=== PATIENT | male | born 1965 | race Caucasian/White ===

== ENCOUNTER 2020-10-26 14:41 | Outpatient (CLI) | payer BC, SELFPAY ==
--- NOTE | 2020-10-26 15:00 | USCV_ITS ---
Trevor Bell Age: 55 Gender: M : 1965 Exam Date: 10/26/2020 15:08 Ordering Phys: Jessica Geller SHREDDED FILLER MACHINE WRAPPER LAYER SHREDDED FILLER MACHINE WRAPPER LAYER Technologist: Eliz Trevino Exam Location: [facility] [place]_ Indication: LT CALF PAIN PROCEDURES: Venous duplex imaging was performed in only the left lower extremity. The following venous structures were evaluated: common femoral vein, profunda vein, proximal portion of the greater saphenous vein, superficial femoral vein, and the popliteal vein. In addition, the posterior tibial and peroneal trunk were evaluated. FINDINGS: Normal 2-D Doppler and augmentation and compressibility throughout the lower extremity venous structures. Additional imaging through the proximal calf veins also reveals no thrombus. Limited evaluation of the greater saphenous vein is patent with no thrombus. Attempted to give verbal prelim but got no answer. CONCLUSIONS No DVT left lower extremity. Dr. Ariana Lam DO (Electronically Signed) Final Date: 26 October 2020 15:50 S
== END 2020-10-26 14:42 | disposition home or self-care (01) ==
PROVIDERS: PCP Nurse Practitioner Family; Visit Provider Nurse Practitioner Family
DX: M79.662 Pain in left lower leg (principal)
CPT/HCPCS: 93971

== ENCOUNTER 2020-10-28 08:51 | Outpatient (CLI) | payer BC, SELFPAY ==
--- NOTE | 2020-10-28 08:59 | ECG_ITS ---
[facility] Test Date: 2020-10-28 Pat Name: Trevor Bell Department: Room: Gender: Male Change Person: Parvin Hector : 1965 Requested By: Jessica Geller Order Number: [id number] Ari MD: Meri Velázquez M.D. Interpretive Statements NAME OF STUDY: TREADMILL STRESS TEST INDICATION: Syncope Baseline blood pressure of 130/68 mm Hg, heart rate 85 beats per minute and oxygen saturation 98%. EKG showed normal sinus rhythm, rightward axis. Right bundle branch block. The patient exercised for 7 minutes 11 seconds on a standard Kit protocol. Patient attained a maximum heart rate of 144 beats per minute(86% of the maximum predicted heart rate) with a blood pressure at the peak exercise of 174/82 mm Hg and oxygen saturation 95%. The EKG at the peak exercise revealed sinus tachycardia with no significant ST-T wave changes. Patient did not have any chest pain or any significant arrhythmis with the exercise. Study was terminated due to protocol completion. During the recovery phase, there were no new changes. Blood pressure at the end of the recovery phase was 143/83 mm Hg with a heart rate of 94 beats per minute oxygen saturation 96%. CONCLUSION: 1. Normal EKG response to treadmill exercise. 2. No exercise-induced chest pain or cardiac arrhythmia. 3. Good exercise tolerance, attained a maximum of 10.2 METs. Maximum VO2 of 35.7 mL/kg/min. 4. Baseline normal blood pressure with normal response to exercise. Electronically Signed On 11-03-2020 12:28:37 CDT by Meri Velázquez M.D. [id number]
[2020-10-28 09:08] VITALS: BMI 30.3
[2020-10-28 09:18] VITALS: BP 163/83; PULSE 99
== END 2020-10-28 08:52 | disposition home or self-care (01) ==
LOC: CDL 08:53
PROVIDERS: PCP Nurse Practitioner Family; Visit Provider Nurse Practitioner Family
DX: R55 Syncope and collapse (principal)
CPT/HCPCS: 93017

== ENCOUNTER 2020-12-08 16:55 | Emergency (ER) | payer BC, SELFPAY ==
[2020-12-08 17:12] VITALS: BP 129/86; PULSE 92; RESP 16; TEMP 36.3; O2SAT 98; BMI 30.7
[2020-12-08 17:16] VITALS: BP 129/86; PULSE 91; RESP 16; O2SAT 97
--- NOTE | 2020-12-08 17:16 | ED_ITS ---
HPI - Extremity Problem General: Chief complaint: Extremity Problem,Nontraumatic Stated complaint: L lower leg injury. possible swelling Time Seen by Provider: 12/08/20 17:15 History of Present Illness: HPI Narrative: Patient with history of a knot in the left calf started about a month ago now has had some redness and swelling. Did have a ultrasound done approximately 3 to 4 weeks ago was negative for DVT. 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 Does have some itching over that area of what he calls a knot in his left calf. MD Complaint: extremity pain and extremity swelling Onset (ago): week(s) Pain Consistency: intermittent Location: left and lower extremity Quality: aching Radiation: none Relieving factors: nothing Associated symptoms: Reports no associated symptoms; Deny chest pain, fever(s) or rash Context: other (Is a diesel truck crane operator) Review of Systems Const: Denies: fever(s), chills or body aches Eyes: Denies: change in vision or blurry vision ENMT: Denies: throat pain or nasal congestion Card: Denies: chest pain or dyspnea on exertion Resp: Denies: dyspnea, productive cough or non-productive cough GI: Denies: abdominal pain, nausea or vomiting : Denies: difficulty urinating Musc: Denies: extremity pain Skin/Breast: Reports: pruritus, erythema and skin swelling (Left lower extremity); Denies: rash Neuro: Denies: headache(s) Psych: Denies: anxiety or depression Jose Angel/Lymph: Denies: easy bruising Physical Exam Const: COMMON NORMALS: no acute distress, average body habitus and patient oriented x3 HENMT: COMMON NORMALS: normocephalic HEAD & SCALP: normal to inspection and normocephalic FACE & SINUS: normal facial exam Eye: COMMON NORMALS: conjunctivae normal GENERAL EYE: appearance normal, both eyes and all related structures CONJUNCTIVA: Yes conjunctivae normal Neck/C-Spine: COMMON NORMALS: no JVD Chest: COMMONS NORMALS: normal inspection of the chest Resp: COMMON NORMALS: normal respiratory effort Cardio: COMMON NORMALS: no JVD and regular rate RATE: regular rate GI: COMMON NORMALS: Normal to inspection, nondistended, normoactive bowel sounds present Extremity: COMMON NORMALS: full ROM LEFT LOWER EXTREMITY: Yes lower leg (Appears to have superficial redness, varicose vein, left calf) OTHER: Mild swelling noted slight redness distal of the knot in his left calf is about mid calf. Consistent with a superficial thrombophlebitis presentation. Neuro: COMMON NORMALS: patient oriented x3 Course Vital Signs: Vital signs: Vital Signs Temperature 97.3 F L 12/08/20 17:12 Pulse Rate 91 12/08/20 17:16 Respiratory Rate 16 12/08/20 17:16 Blood Pressure 129/86 12/08/20 17:16 Pulse Oximetry 97 12/08/20 17:16 MDM - Extremity (Nontraumatic) MDM Narrative: Medical decision making narrative: Patient presentation consistent with superficial thrombophlebitis. Patient been having this problem for a month. 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 Patient has had an ultrasound ruled out DVT. Left lower extremity slightly red superficially does have a varicose vein type area of left posterior calf. Patient is followed primary care provider. Discharge Plan Discharge Patient Disposition: Home Clinical Impression: Superficial thrombophlebitis Qualifiers: Superficial thrombophlebitis-Involved body area: lower extremity Laterality: left Qualified Code(s): I80.02 - Phlebitis and thrombophlebitis of superficial vessels of left lower extremity Condition: Stable Prescriptions: New prednisone 20 mg tablet 20 mg PO DAILY Qty: 7 RF: 0 cephalexin 500 mg capsule 500 mg PO Q8H 7 Days Qty: 21 RF: 0 Discharge Orders: Discharge ED (Routine); Ordered 12/08/20 Ordered By: Ronn Kuo Referrals: Jessica Geller FNP [Primary Care Provider] - Discharge Diet: Usual diet Discharge Activity: Increase activity as tolerated Patient Instructions: Superficial Thrombophlebitis (ED) Activity Restrictions/Additional Instructions: Follow-up with medical provider as directed. Take medications as prescribed. Return to the ER or your medical provider if condition worsens. Please read and understand discharge instructions. If any questions ask please. Try to elevate legs much as possible. Apply moist heat every 1-2 hours as directed. 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 Try to keep legs from being bent into need for extended periods of time. Continue take baby aspirin. Coding Level of Care Code ED Electronic Commerce Specialist for Sarai Fwd Exam Comprehensive
== END 2020-12-08 17:30 | disposition home or self-care (01) ==
PROVIDERS: Emergency Provider Nurse Practitioner Family; PCP Nurse Practitioner Family
DX: I80.02 Phlebitis and thrombophlebitis of superficial vessels of left lower extremity (principal)
CPT/HCPCS: 99282

== ENCOUNTER 2022-04-02 14:54 | Emergency (ER) | payer SELFPAY ==
[2022-04-02 15:03] VITALS: BP 117/83; PULSE 78; RESP 14; TEMP 36.6; O2SAT 98; BMI 29.8
--- NOTE | 2022-04-02 15:08 | W.ED.EXTPRO ---
HPI - Extremity Problem General: Chief complaint: Extremity Injury, Lower Stated complaint: right knee injury Time Seen by Provider: 04/02/22 15:08 History of Present Illness: 56-year-old male patient comes in today for complaints of pain to the right knee. Patient reports he was vacuuming this morning when he felt a pop in his knee and since then he has had difficulty standing and bearing weight on the knee due to pain. Patient appears nontoxic. Patient appears in mild to no pain at rest. Review of Systems Musc: Reports: joint pain (right knee pain) Physical Exam Const: COMMON NORMALS: alert HENMT: COMMON NORMALS: normocephalic HEAD & SCALP: normocephalic Neck/C-Spine: COMMON NORMALS: full ROM Resp: COMMON NORMALS: normal respiratory effort and clear to auscultation bilaterally AUSCULTATION: clear to auscultation bilaterally Cardio: COMMON NORMALS: regular rate and regular rhythm RATE: regular rate RHYTHM: regular rhythm Extremity: RIGHT LOWER EXTREMITY: Yes knee joint (Crepitus to the patellofemoral groove, anterior tenderness) Right knee: Yes inspection, Yes palpation and Yes ROM Neuro: SENSORIUM/ORIENTATION: Yes alert Course Vital Signs: Vital signs: Vital Signs Temperature 97.8 F 04/02/22 15:03 Pulse Rate 78 04/02/22 15:03 Respiratory Rate 14 04/02/22 15:03 Blood Pressure 117/83 04/02/22 15:03 Pulse Oximetry 98 04/02/22 15:03 Oxygen Delivery Me thod 04/02/22 15:03 MDM - Extremity (Nontraumatic) Medical Decision Making Patient comes in for evaluation of injury to the right knee. Patient reports he was using a vacuum housekeeping cleaner and felt a pop in his right knee since then has had increased pain and difficulty standing on his leg due to his discomfort. On exam no swelling is noted to the knee. Patient does have some crepitus with range of motion of the knee and maneuvering of the patella. Differential diagnosis includes but not limited to meniscal injury, osteoarthritis, patellofemoral syndrome. X-ray of the leg noted no fractures. Reviewed exam with patient with recommendations for treatment with crutches for ambulation and increasing activity as tolerated. Patient reported understanding of care plan and need for follow-up or return to the ER. Discharge Plan Discharge Patient Disposition: Home Clinical Impression: Knee pain, right Qualifiers: Chronicity: unspecified Qualified Code(s): M25.561 - Pain in right knee Condition: Stable Prescriptions: New naproxen 500 mg tablet 500 mg PO BID Qty: 20 0RF No Action prednisone 20 mg tablet 20 mg PO DAILY Qty: 7 0RF Discharge Orders: Discharge ED (Routine); Ordered 04/02/22 Ordered By: Saleem Castellon Referrals: Jessica Geller FNP [Primary Care Provider] - Discharge Diet: Usual diet Discharge Activity: Increase activity as tolerated Patient Instructions: Knee Pain (ED) Activity Restrictions/Additional Instructions: Increase activity as tolerated. Use ice and heat to improve pain. Use naproxen routinely for pain and inflammation. You may also use [id number] acetaminophen for further pain relief. Do not use naproxen with ibuprofen containing products. Follow-up with primary care as needed. Case management will contact you regarding a follow-up appointment with orthopedist for further evaluation and treatment. Coding Level of Care Code ED Briquetting Machine Operator for Sarai Fwkaden Exam Detailed
--- NOTE | 2022-04-02 15:13 | XRR_ITS ---
PROCEDURE INFORMATION: Exam: XR Right Knee Exam date and time: 04/02/2022 3:20 PM Age: 56 years old Clinical indication: Pain; Knee; Right TECHNIQUE: Imaging protocol: Radiologic exam of the Right knee. Views: 3 views. COMPARISON: No relevant prior studies available. FINDINGS: Bones/joints: There are small marginal osteophytes across the medial joint compartment and patellofemoral joint consistent with primary osteoarthritic change. No evidence for acute fracture. Soft tissues: There are benign-appearing soft tissue calcifications. XR/XR knee RT 3V* [id number] IMPRESSION: There are small marginal osteophytes across the medial joint compartment and patellofemoral joint consistent with primary osteoarthritic change.
[2022-04-02] MEDS: naproxen 500 mg Tablet PO (15:39)
== END 2022-04-02 15:56 | disposition home or self-care (01) ==
PROVIDERS: Emergency Provider Nurse Practitioner Family; PCP Nurse Practitioner Family
DX: M25.561 Pain in right knee (principal)
CPT/HCPCS: 73562; 99283

== ENCOUNTER 2022-04-10 23:20 | Observation (INO) | payer SELFPAY ==
--- NOTE | 2022-04-10 23:21 | XRR_ITS ---
PROCEDURE INFORMATION: Exam: XR Chest Exam date and time: 04/10/2022 11:36 PM Age: 56 years old Clinical indication: Chest wall pain; Additional info: Cp TECHNIQUE: Imaging protocol: Radiologic exam of the chest. Views: 1 view. COMPARISON: No relevant prior studies available. FINDINGS: Lungs: Tiny calcific densities throughout both lungs, likely calcified granulomas.. Keating space No consolidation. Pleural spaces: Unremarkable. No pleural effusion. No pneumothorax. Heart/Mediastinum: Unremarkable. No cardiomegaly. Bones/joints: Unremarkable. There is a suspected hiatal hernia. XR/XR chest 1V portable [id number] IMPRESSION: No acute radiographic findings in the chest.
[2022-04-10 23:22] VITALS: PULSE 86
--- NOTE | 2022-04-10 23:22 | ECG_ITS ---
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 Measurements Intervals Neligh Rate: 86 P: 53 CT: 170 QRS: 4 QRSD: 133 T: 52 QT: 389 QTc: 467 Interpretive Statements SINUS RHYTHM POSSIBLE LEFT ATRIAL ENLARGEMENT [-0.1mV P-WAVE IN V1/V2] INDETERMINATE AXIS RIGHT BUNDLE BRANCH BLOCK [120+ ms QRS DURATION, UPRIGHT V1, 40+ ms S IN I/aVL/V4/V5/V6] No previous ECG available for comparison Electronically Signed On 04-11-2022 0:17:21 CDT by Liza Morgan M.D. [id number]
[2022-04-10 23:31] VITALS: BP 154/96; PULSE 97; RESP 20; TEMP 36.6; O2SAT 100; BMI 29.0
--- NOTE | 2022-04-10 23:38 | ED_ITS ---
HPI - Chest Pain General: Chief Complaint: Chest Pain Stated Complaint: chest tightness Time Seen by Provider: 04/10/22 23:22 Source: patient Mode of arrival: ambulatory Limitations: no limitations History of Present Illness: 56-year-old male states he has been having chest pain over the last 10 days. He states that he gets a pressure type pain especially with exertion with some radiation down his arm. He has some dyspnea with the pain as well. He denies any nausea or diaphoresis he denies any vo miting or diarrhea he denies any pain currently. No history of heart disease. Associated symptoms: Deny abdominal pain, dyspnea, fever(s), nausea or vomiting Review of Systems Const: Denies: fever(s), chills, body aches or change in appetite Eyes: Denies: blurry vision or eye discomfort ENMT: Denies: throat pain or dental pain Card: Reports: chest pain Resp: Denies: dyspnea GI: Denies: abdominal pain, nausea, vomiting or diarrhea : Denies: dysuria Musc: Denies: neck pain or back pain Skin/Breast: Denies: rash Neuro: Denies: headache(s) Psych: Denies: depression Jose Angel/Lymph: Denies: easy bruising All/Imm: Denies: urticaria PFSH ED PFSH: Medical History (Updated 04/11/22 @ 00:56 by Jono Rainey MD) High cholesterol Social History (Updated 04/10/22 @ 23:39 by Jono Rainey MD) Smoking and tobacco status: never smoked Substance/Drug Use: never Physical Exam Const: COMMON NORMALS: no acute distress, patient oriented x3 and healthy appearing HENMT: COMMON NORMALS: normocephalic and atraumatic HEAD & SCALP: normoceph alic and atraumatic Eye: COMMON NORMALS: Equal, round and reactive pupils present and EOMs intact bilaterally PUPIL: Yes Equal, round and reactive pupils present Neck/C-Spine: COMMON NORMALS: full ROM and supple Chest: COMMONS NORMALS: normal inspection of the chest and normal palpation of entire chest wall Resp: COMMON NORMALS: normal respiratory effort, No retractions, No use of accessory muscles and clear to auscultation bilaterally AUSCULTATION: clear to auscultation bilaterally Cardio: COMMON NORMALS: regular rate, regular rhythm and No murmurs present (Cardio) RATE: regular rate RHYTHM: regular rhythm GI: COMMON NORMALS: Normal to inspection, nondistended, normoactive bowel sounds present, Soft to palpation, non-tender and no masses PALPATION: Yes Soft to palpation Extremity: COMMON NORMALS: normal to inspection and full ROM Neuro: COMMON NORMALS: patient oriented x3, moves all extremities and no focal motor deficits Psych: COMMON NORMALS: mental status grossly normal, Normal thought process present and cooperative THOUGHT PROCESS: Normal thought process present Skin: COMMON NORMALS: no rashes or lesions noted and no wounds GENERAL SKIN EXAM: no rashes or lesions noted Course Vital Signs: Vital signs: Vital Signs Temperature 97.9 F 04/10/22 23:31 Pulse Rate 85 04/11/22 00:15 Respiratory Rate 18 04/11/22 00:15 Blood Pressure 144/95 04/11/22 00:15 Pulse Oximetry 99 04/11/22 00:15 Oxygen Delivery Me thod 04/11/22 00:15 MDM - Chest Pain Medical Decision Making Patient presents here with chest pain he is pain-free here he does have substernal pain that radiates to his arm is worse with exertion concerning for cardiac in nature original troponins mildly elevated patient given aspirin here spoke to hospitalist will admit at this time. Lab Data : 04/10/22 23:37 04/10/22 23:37 Radiology Impressions Chest X-Ray 04/10/22 23:21 IMPRESSION: No acute radiographic findings in the chest. Laboratory Results WBC 5.4 10^3/uL (4.0-10.0) 04/10/22 23:37 RBC 5.05 10^6/uL (4.1-5.3) 04/10/22 23:37 Hgb 16.1 g/dL (11.7-16.6) 04/10/22 23:37 Hct 46.8 % (42.0-52.0) 04/10/22 23:37 MCV 92.7 fl (80-94) 04/10/22 23:37 MCH 31.9 pg (28.0-34.0) 04/10/22 23:37 MCHC 34.4 g/dL (30.0-36.0) 04/10/22 23:37 RDW 13.0 % (12.1-15.1) 04/10/22 23:37 Plt Count 182 10^3/cmm (130-400) 04/10/22 23:37 MPV 10.5 fL (7.4-10.4) H 04/10/22 23:37 Neut % (Auto) 59.5 % 04/10/22 23:37 Lymph % (Auto) 27.4 % 04/10/22 23:37 Waller % (Auto) 9.6 % 04/10/22 23:37 Eos % (Auto) 2.9 % 04/10/22 23:37 Baso % (Auto) 0.4 % 04/10/22 23:37 Neut # (Auto) 3.24 10^3/uL (1.8-7.7) 04/10/22 23:37 Lymph # (Auto) 1.5 10^3/uL (0.8-4.8) 04/10/22 23:37 Waller # (Auto) 0.5 10^3/uL (0.2-0.9) 04/10/22 23:37 Eos # (Auto) 0.2 10^3/uL (0.0-0.8) 04/10/22 23:37 Baso # (Auto) 0.0 10^3/uL (0.0-0.1) 04/10/22 23:37 Nucleated RBC % (auto) 0 % 04/10/22 23:37 Nucleated RBCs # 0.0 /100WBC 04/10/22 23:37 Chloride 98 mmol/L (98-107) 04/10/22 23:37 Carbon Dioxide 24 mmol/L (22-29) 04/10/22 23:37 BUN 18 mg/dL (6-20) 04/10/22 23:37 Creatinine 1.0 mg/dL (0.7-1.2) 04/10/22 23:37 Calcium 9.4 mg/dL (8.5-10.5) 04/10/22 23:37 Total Bilirubin 0.5 mg/dL (0.15-1.2) 04/10/22 23:37 AST 5 U/L (0-40) 04/10/22 23:37 ALT < 5 U/L (0-41) 04/10/22 23:37 Troponin T Baseline 24 ng/L (0-15) H 04/10/22 23:37 Total Protein 6.8 g/dL (6.6-8.7) 04/10/22 23:37 Albumin 4.3 g/dL (3.5-5.2) 04/10/22 23:37 Globulin 2.5 g/dL (1.3-4.6) 04/10/22 23:37 EKG Data EKG 1: I personally reviewed and interpreted this EKG as follows: EKG interpretation date: 04/10/22 EKG interpretation time: 23:31 Interpretation: nsr hr [address] elevation qrs 133 qtc 432 Discharge Plan Discharge Patient Disposition: Placed in Observation Clinical Impression: Chest pain Prescriptions: No Action Farxiga 10 mg tablet 10 mg PO DAILY lovastatin 40 mg tablet 40 mg PO BEDTIME metformin 500 mg tablet extended release 24 hr 500 mg PO BID naproxen 500 mg tablet 500 mg PO BID Referrals: Jessica Geller FNP [Primary Care Provider] - Coding Level of Care Code ED Metal Bonding Press Operator for Chg Fwd Exam Comprehensive
[2022-04-10 23:40] VITALS: BP 154/96; PULSE 89; RESP 21; O2SAT 99
[2022-04-10 23:44] LABS: Basophils % 0.4 %; Eosinophils # 0.2 10^3/uL (0.0-0.8); Eosinophils % 2.9 %; Hematocrit 46.8 % (42.0-52.0); Hemoglobin 16.1 g/dL (11.7-16.6); Lymphocytes # 1.5 10^3/uL (0.8-4.8); Lymphocytes % 27.4 %; Mean Corpuscular HGB Conc 34.4 g/dL (30.0-36.0); Mean Corpuscular Hemoglobin 31.9 pg (28.0-34.0); Mean Corpuscular Volume 92.7 fl (80-94); Mean Platelet Volume 10.5 fL (7.4-10.4); Monocytes # 0.5 10^3/uL (0.2-0.9); Monocytes % 9.6 %; Neutrophils # 3.24 10^3/uL (1.8-7.7); Neutrophils % 59.5 %; Nucleated Red Blood Cells % 0 %; Platelet Count 182 10^3/cmm (130-400); Red Blood Count 5.05 10^6/uL (4.1-5.3); White Blood Count 5.4 10^3/uL (4.0-10.0)
[2022-04-11] VITALS (31 sets, daily range): BP systolic 97–144; BP diastolic 61–95; PULSE 68–103; RESP 15–25; TEMP 36.7–36.8; O2SAT 89–100
--- NOTE | 2022-04-11 | ECG_ITS ---
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 Interpretive Statements NAME OF STUDY: LEXISCAN SESTAMIBI STRESS TEST INDICATION: [Chest Pain] Procedure: At the baseline, the blood pressure was 101/61 mmHg with a heart rate of 76 bpm. The electrocardiogram showed normal sinus rhythm, right bundle branch block. No significant ST-T wave changes. The Lexiscan was infused over a period of 20 seconds. A total of 0.4 mg of Lexiscan was infused. The stress phase was continued for a total of 5 minutes. Heart rate was at the end of stress phase was 89 bpm and a blood pressure of 103/75 mmHg. The EKG at the peak infusion revealed normal sinus rhythm with no significant ST-T wave changes. Sestamibi was injected 20 seconds after the Lexiscan infusion. Blood pressure at the end of recovery phase was 115/69 mmHg with a heart rate of 85 bpm. Conclusion: 1. Normal EKG response to Lexiscan infusion 2. No Lexiscan induced chest pain or cardiac arrhythmia. 3. Normal blood pressure and heart rate response. 4. Sestamibi/sestamibi perfusion scan pending; see separate report. Electronically Signed On 04-22-2022 20:58:27 CDT by Cory Zeng M.D. [id number]
[2022-04-11 00:02] LABS: Alkaline Phosphatase 140 U/L (40-130); Blood Urea Nitrogen 18 mg/dL (6-20); Calcium 9.4 mg/dL (8.5-10.5); Carbon Dioxide 24 mmol/L (22-29); Chloride 98 mmol/L (98-107); Glomerular Filtration Rate 77.9 mL/min (90-130); Glucose 412 mg/dL (65-115); Osmolality Calculated 299 mOsm/kg (285-295); Sodium 135 mmol/L (136-145); Total Bilirubin 0.5 mg/dL (0.15-1.2); Total Protein 6.8 g/dL (6.6-8.7)
[2022-04-11] MEDS: aspirin 81 mg Chew Tablet 243 MG PO (00:15)
[2022-04-11 00:21] LABS: Troponin(5th) Baseline 24 ng/L (0-15)
[2022-04-11 00:51] LABS: Albumin Level 4.3 g/dL (3.5-5.2); Globulin 2.5 g/dL (1.3-4.6)
[2022-04-11 00:55] LABS: Anion Gap 17.1 (5-19); Potassium 4.1 mmol/L (3.5-5.1)
[2022-04-11 00:56] LABS: Alanine Aminotransferase 5 U/L (0-41); Aspartate Amino Transferase 5 U/L (0-40)
--- NOTE | 2022-04-11 01:09 | USCV_ITS ---
Trevor Bell Age: 56 Gender: M : 1965 Exam Date: 04/11/2022 01:27 Ordering Phys: Raman Ramirez MD Technologist: JORGE [place] [facility] [place]: Chest pain BP: 142 / 91 HR: 75 Rhythm: Sinus Technical Quality: Adequate MEASUREMENTS (Male / Female) Normal Values 2D ECHO LV Diastolic Diameter PLAX 3.2 cm 4.2 - 5.9 / 3.9 - 5.3 cm LV Systolic Diameter PLAX 1.9 cm IVS Diastolic Thickness 1.2 cm 0.6 - 1.0 / 0.6 - 0.9 cm IVS Systolic Thickness 1.9 cm LVPW Diastolic Thickness 1.0 cm 0.6 - 1.0 / 0.6 - 0.9 cm LVPW Systolic Thickness 1.2 cm LVOT Diameter 2.0 cm LV Ejection Fraction 2D Teich 72.6 % LV Ejection Fraction MOD 2C 57.4 % LV Ejection Fraction 2C AL 62.8 % LA Diameter 3.7 cm LA Width 3.8 cm LA Height 4.7 cm RA Width 3.3 cm RA Height 4.3 cm Aorta at Sinotubular Diameter 2.8 cm IVC Diameter 2.0 cm M-MODE Aortic Annulus Diameter 3.0 cm LA Ao Ratio MM 1.4 MV E Point Septal Separation 0.5 cm DOPPLER AV Peak Velocity 131.0 cm/s LVOT Peak Velocity 82.0 cm/s AV Area Cont Eq vti 2.0 cm squared AV Area Cont Eq pk 2.0 cm squared MV Area PHT 4.3 cm squared Mitral E to A Ratio 1.1 MV E' Velocity 42.0 cm/s Mitral E to MV E' Ratio 6.3 Mitral E to LV E' Lateral Ratio 5.3 Mitral E to LV E' Septal Ratio 8.0 TR Peak Velocity 205.3 cm/s TR Peak Gradient 16.9 mmHg TV Peak E Velocity 61.0 cm/s Right Atrial Pressure 5.0 mmHg Pulmonary Artery Systolic Pressu 21.9 mmHg PV Peak Velocity 104.0 cm/s RV Acceleration Time 0.1 s RV Ejection Time 0.4 s RV AcT/ET 0.4 FINDINGS Left Ventricle Normal left ventricular size, systolic function and wall thickness, with no regional wall motion abnormalities. Left ventricular ejection fraction is estimated at 60-65 %. Normal diastolic function. Right Ventricle Normal right ventricular size and systolic function. Right ventricular systolic pressure 22 mmHg. Right Atrium Normal right atrial size. Left Atrium Normal left atrial size. Mitral Valve Structurally normal mitral valve. No mitral valve stenosis. Trace mitral valve regurgitation. Aortic Valve Structurally normal trileaflet aortic valve. No aortic valve stenosis. No aortic valve regurgitation. Tricuspid Valve Structurally normal tricuspid valve. No tricuspid valve stenosis. Trace tricuspid valve regurgitation. Pulmonic Valve Structurally normal pulmonic valve. No pulmonary valve stenosis. No pulmonary valve regurgitation. Pericardium No pericardial effusion. Aorta Normal size aortic root and proximal ascending aorta. IVC Normal IVC dimension with >50% respiratory change of the inferior vena cava. CONCLUSIONS 1. Normal left ventricular size, systolic function and wall thickness, with no regional wall motion abnormalities. Left ventricular ejection fraction is estimated at 60-65 %. Normal diastolic function. 2. Normal right ventricular size and systolic function. 3. Pulmonary artery pressure estimated at 22 mmHg. 4. No significant valvular abnormality. 5. No prior similar studies to compare. Meri Velázquez MD (Electronically Signed) Final Date: 11 April 2022 11:48 S
--- NOTE | 2022-04-11 01:13 | PM.HP ---
Providers/Chief Complaint Primary Care Provider: Jessica Geller Chief Complaint: chest tightness History of Present Illness Trevor Bell is a 56 year old male with past medical history of diabetes, dyslipidemia, came in with chief complaint of substernal chest tightness going on for the last 2 weeks, worse with exertion, radiating to left arm, accompanied with mild shortness of breath, denied any palpitation diaphoresis nausea vomiting, cough fever. Upon arrival in the ER he was worked up for above-mentioned complaint. Pertinent imaging studies: X-ray chest; no acute findings EKG: Sinus rhythm possible left atrial enlargement,RBBB Pertinent labs: WBC 5.4, H&H 16/46 , PLT: 182 , sodium 135 potassium 4.1, BUN/SCR:18/1 , RBS : 412 Troponin trend: Review of Systems General: Reports: 10 or more systems reviewed and unremarkable except in HPI and below Const: Denies: fever(s), chills, body aches, change in appetite or diaphoresis Card: Denies: palpitations, edema, swelling of feet/ankles, dyspnea on exertion, orthopnea or leg pain with exertion Resp: Denies: dyspnea, productive cough, wheezing or pain on inspiration GI: Denies: abdominal pain, nausea, vomiting, diarrhea or constipation : Denies: flank pain or difficulty urinating Musc: Denies: back pain, extremity pain or extremity swelling Neuro: Denies: headache(s), difficulty walking or confusion Medications/Allergies Home Medications Medication Instructions Recorded Confirmed Last Taken Type dapagliflozin 10 mg tablet 10 mg PO DAILY 04/10/22 04/10/22 04/05/22 08:00 History ([facility]) lovastatin 40 mg tablet 40 mg PO BEDTIME 04/10/22 04/10/22 04/06/22 21:00 History metformin 500 mg tablet,extended 500 mg PO BID 04/10/22 04/10/22 04/05/22 08:00 History release 24 hr naproxen 500 mg tablet 500 mg PO BID 04/10/22 04/10/22 04/09/22 12:00 History Allergies Allergy/AdvReac Type Severity Reaction Status Date / Time No Known Allergies Allergy Verified 04/10/22 23:35 PFSH Acute PFSH: Medical History (Updated 04/11/22 @ 01:14 by Raman Ramirez MD) High cholesterol Social History (Updated 04/10/22 @ 23:39 by Jono Rainey MD) Smoking and tobacco status: never smoked Substance/Drug Use: never Vitals/I&O/Wt Last Vital Signs Temp 97.9 F 04/10/22 23:31 Pulse 87 04/11/22 01:00 Resp 16 04/11/22 01:00 BP 142/91 04/11/22 01:00 Pulse Ox 98 04/11/22 01:00 O2 Del Method 04/11/22 01:00 Weight last 48 hrs Weight 81.647 kg Physical Exam Const: COMMON NORMALS: patient oriented x3 Resp: COMMON NORMALS: normal respiratory effort, No retractions, No use of accessory muscles and clear to auscultation bilaterally EFFORT & INSPECTION: Yes symmetric chest movement AUSCULTATION: clear to auscultation bilaterally Cardio: COMMON NORMALS: regular rate, regular rhythm, S1 normal heart sound present, S2 normal heart sound present, No gallops present (Cardio), No murmurs present (Cardio), No rub (Cardio) and Peripheral pulses 2+ throughout RATE: regular rate RHYTHM: regular rhythm HEART SOUNDS: S1 normal heart sound present and S2 normal heart sound present PERIPHERAL PULSES: Peripheral pulses 2+ throughout GI: COMMON NORMALS: Normal to inspection, nondistended, normoactive bowel sounds present, Soft to palpation, non-tender, No hepatosplenomegaly present and no masses AUSCULTATION: Yes normoactive bowel sounds PALPATION: Yes Soft to palpation and Yes No hepatosplenomegaly present RECTAL EXAM: Yes deferred Extremity: COMMON NORMALS: no clubbing, cyanosis or edema and no pedal edema Neuro: COMMON NORMALS: patient oriented x3 Data : 04/11/22 03:00 04/11/22 03:00 A&P Assessment and plan (1) Chest pain: (2) Dyslipidemia: (3) Diabetes: Plan 56 year old male with past medical history of diabetes, dyslipidemia, came in with chief complaint of substernal chest tightness going on for the last 2 weeks, worse with exertion, radiating to left arm, accompanied with mild shortness of breath, denied any palpitation diaphoresis nausea vomiting, cough fever. Assessment: Chest pain Diabetes Dyslipidemia Plan: Patient has exercise stress test in November 03: Which was normal Follow- 2D echo Lipid panel HbA1c N.p.o. for stress test Aspirin ,stain, Nitropaste Sublingual nitro as needed CODE STATUS: Full code DVT PPX: On Lovenox Attestations Medical Necessity Statement*: Patient is to be in hospital for management of chest pain. Time Spent in Patient Care: Greater than 35 minutes (>than 50% of time spent in counselling and/or direct pt care on unit). Coding Level of Care Code Acute Advertising Assistant Manager for g Fwd Exam Detailed Diagnoses Chest pain R07.9 Dyslipidemia E78.5 Diabetes E11.9
--- NOTE | 2022-04-11 01:22 | ECG_ITS ---
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 Measurements Intervals Emerson Rate: 76 P: 21 NM: 142 QRS: 19 QRSD: 133 T: 50 QT: 403 QTc: 456 Interpretive Statements SINUS RHYTHM INDETERMINATE AXIS RIGHT BUNDLE BRANCH BLOCK Compared to ECG 04/10/2022 23:31:07 No significant change Electronically Signed On 04-11-2022 12:21:38 CDT by Meri Velázquez M.D. [id number]
--- NOTE | 2022-04-11 01:48 | NMCV_ITS ---
NM kwasi perf SPECT r/s* [id number] Ray Trevor Age: 56 Gender: M : 1965 Exam Date: 04/11/2022 07:05 Ordering Phys: Raman Ramirez MD Technologist: JULIETTE Toledo Exam Location: [facility] Indications: Chest pressure STRESS TEST Please [facility] IMAGE PROTOCOL Rest/Stress 1 Lexiscan Day Radiopharmaceutical Dose (mCi) Administration Site Administered by Rest: Tc-99m 10.9 IV JULIETTE [place] Sestamibi Stress:Tc-99m 32.9 IV JULIETTE [place] Sestamibi Rest: 11-Apr-2022 60 Discovery 630 Stress: 11-Apr-2022 30 Discovery 630 0.4mg Lexiscan. Images obtained in supine and prone position. SPECT RESULTS Technical Quality: Good Raw Data Analysis: Normal Image Corrections: No attenuation or motion correction applied Summed Stress Score: 10 Summed Rest Score: 1 Summed Difference Score: 9 PERFUSION FINDINGS There is a large in size reversible perfusion defect noted in anterior, apical anterior and septal wall. This is consistent with large sized area of ischemia in LAD territory. FUNCTIONAL RESULTS (calculated via Gated SPECT) Stress Image LV EF (%): 55 Stress EDV (mL):75 TID: 0.9 Stress ESV (mL):34 FUNCTIONAL FINDINGS: There is normal left ventricular systolic function. IMPRESSIONS 1. Abnormal myocardial perfusion imaging with large sized area of ischemia noted in the LAD territory 2. LV systolic function is normal Cory Zeng MD (Electronically Signed) Final Date: 11 April 2022 09:38 S
--- NOTE | 2022-04-11 02:02 | PC.NURSE ---
patient transport delayed due to ultrasound at bedside
[2022-04-11 02:25] LABS: Troponin 5 2HR 28.96 ng/L (0-15)
[2022-04-11 02:26] LABS: Troponin 5 2HR Delta 4.96 ABS# (0-10)
[2022-04-11] MEDS: nitroglycerin 1 gm/inch oint Pkt 1 INCH TOPICAL (02:38)
[2022-04-11] MEDS: enoxaparin 40 mg/0.4 mL Syringe SUBCUT (02:38)
[2022-04-11 03:08] LABS: Basophils % 0.4 %; Eosinophils # 0.2 10^3/uL (0.0-0.8); Eosinophils % 3.2 %; Hematocrit 42.8 % (42.0-52.0); Hemoglobin 14.5 g/dL (11.7-16.6); Lymphocytes # 1.5 10^3/uL (0.8-4.8); Lymphocytes % 31.5 %; Mean Corpuscular HGB Conc 33.9 g/dL (30.0-36.0); Mean Corpuscular Hemoglobin 31.3 pg (28.0-34.0); Mean Corpuscular Volume 92.2 fl (80-94); Mean Platelet Volume 10.1 fL (7.4-10.4); Monocytes # 0.4 10^3/uL (0.2-0.9); Monocytes % 9.3 %; Neutrophils # 2.57 10^3/uL (1.8-7.7); Neutrophils % 55.6 %; Nucleated Red Blood Cells % 0 %; Platelet Count 152 10^3/cmm (130-400); Red Blood Count 4.64 10^6/uL (4.1-5.3); Red Cell Distribution Width 12.7 % (12.1-15.1); White Blood Count 4.6 10^3/uL (4.0-10.0)
[2022-04-11 03:33] LABS: Estmated Average Glucose 212
[2022-04-11 03:56] LABS: Blood Urea Nitrogen 16 mg/dL (6-20); Calcium 9.1 mg/dL (8.5-10.5); Carbon Dioxide 19 mmol/L (22-29); Chloride 101 mmol/L (98-107); Creatinine Clr Calc Pharmacy 94.1472; Glomerular Filtration Rate 87.9 mL/min (90-130); Glucose 394 mg/dL (65-115); Osmolality Calculated 300 mOsm/kg (285-295); Sodium 136 mmol/L (136-145)
[2022-04-11 03:58] LABS: Anion Gap 20.3 (5-19); Potassium 4.3 mmol/L (3.5-5.1)
--- NOTE | 2022-04-11 05:18 | ECG_ITS ---
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 Measurements Intervals [place] Rate: 90 P: 42 MD: 154 QRS: 3 QRSD: 133 T: 42 QT: 380 QTc: 465 Interpretive Statements SINUS RHYTHM INDETERMINATE AXIS RIGHT BUNDLE BRANCH BLOCK [120+ ms QRS DURATION, UPRIGHT V1, 40+ ms S IN I/aVL/V4/V5/V6] Compared to ECG 04/11/2022 02:07:34 Right bundle-branch block now present Intraventricular conduction delay no longer present Electronically Signed On 04-11-2022 12:21:03 CDT by Meri Velázquez M.D. [id number]
[2022-04-11 05:54] LABS: Troponin 5 6HR 25.88 ng/L (0-15)
[2022-04-11 05:59] LABS: Troponin 5 6HR Delta 1.88 ng/L (0-12)
[2022-04-11 06:10] LABS: Chol HDL Ratio 8.03 mg/dL (1.0-5.00); Cholesterol 257 mg/dL (0-200); HDL Cholesterol 32 mg/dL (60-100); Triglycerides 732 mg/dL (0-150)
[2022-04-11 06:16] LABS: Glucose Point of Care 272 mg/dL (70-110)
[2022-04-11 06:33] LABS: LDL Cholesterol Direct 137 mg/dL (0-100)
[2022-04-11] MEDS: regadenoson 0.4 Mg/5 ml Syringe IVP (07:41)
[2022-04-11 08:14] LABS: Lipase 53 U/L (13-60)
--- NOTE | 2022-04-11 09:49 | P.PN_ITS ---
Subjective Subjective: Positive stress test patient will need cardiac No active chest pain at the bedside I requested lipase to rule out pancreatitis High triglycerides noted Patient is noncompliant with his medications Vitals/I&O/Wt Last Vital Signs Temp 98.0 F 04/11/22 04:00 Pulse 69 04/11/22 08:00 Resp 18 04/11/22 04:00 BP 115/69 04/11/22 07:53 Pulse Ox 98 04/11/22 08:00 O2 Del Method 04/11/22 08:00 Weight last 48 hrs Weight 81.647 kg Physical Exam Narrative: Chest pain-free at this point S1, S2 Hemodynamically stable Currently on room air Abdomen soft Euvolemic Family at the bedside Nonfocal neuro exam Data : 04/11/22 03:00 04/11/22 03:00 A&P Assessment and plan (1) Diabetes: (2) Dyslipidemia: (3) Chest pain: (4) High cholesterol: Plan Positive stress test, will go for cardiac cath Dr. Zeng is consulted He is n.p.o. Home and IV stable Start normal saline Full code Hemoglobin A1c is 9 Patient does not take insulin Attestations Medical Necessity Statement*: Going for cardiac cath Time Spent in Patient Care: 40 Coding Level of Care Code Acute College Associate for Chg Fwd Diagnoses Diabetes E11.9 Dyslipidemia E78.5 Chest pain R07.9 High cholesterol E78.00
--- NOTE | 2022-04-11 09:56 | XACV_ITS ---
Exam Room: On license of [facility] Ht: 168 cm Wt: 82 kg BSA: 1.97 m2 Gender: Male : 1965 Any Known Allergies: No known allergies Exam Priority: Routine Procedure(s): Procedure Description: Diagnostic procedure Procedure Description: PCI procedure Procedure Description: Left Heart Catheterization Procedure Description: Coronary IVUS Procedure Description: Drug Eluting Coronary Stent Procedure Description: PTCA Procedure Description: Miscellaneous Procedure Description: ACT Procedure Description: Coronary Angiography Diagnostic Cath Status: Urgent Diagnostic Findings * Left Main is very short. No significant disease. Almost separate ostia. * Left circumflex artery has almost separate ostia. * It gives rise to a very large sized OM 1. * F * irst Obtuse Marginal Branch Segment: significant 80% stenosis, KARLEE: 3 flow. * INDICATION: Patient has presented with typical, worsening chest pain symptoms for the last 2 to 3 weeks. Stress test performed today shows large sized area of ischemia in LAD territory. * Proximal Left Anterior Descending to Mid Left Anterior Descending: severe 90% stenosis, KARLEE: 3 flow. * Proximal Right Coronary Artery to Mid Right Coronary Artery: minimal 30% stenosis, KARLEE: 3 flow. * 1st Diagonal: significant 80% stenosis, KARLEE: 3 flow. * Coronary angiography shows right dominance. PCI Status: Urgent PCI Indication: New Onset Angina <= 2 months Interventional Findings * Procedure detail: We engaged left circumflex artery subselectively with XB 3.0 guide catheter. 0.014 run-through guidewire was used to cross OM stenosis. This was followed by predilation with 2.5 x 12 mm noncompliant balloon. We then placed 3.5 x 15 mm resolute Shubham drug-eluting stent. At this time final angiogram was performed that showed excellent stent expansion, no residual stenosis and KARLEE-3 flow. We then switched our attention to LAD/diagonal artery stenosis. LAD was subselectively engaged with XB 3.0 guide catheter. We used the 2 wires to cross into diagonal and LAD. Diagonal artery was first dilated with 2.5 x 12 mm semicompliant balloon. This opened up the ostium very well. Given small to medium sized vessel, we decided to treat LAD with a provisional stent strategy. IVUS was used to size the vessel. We predilated LAD stenosis with 2.5 x 12 mm semicompliant balloon. This was followed by placement of 3.5 x 26 mm resolute Shubham drug-eluting stent. IVUS showed some underexpansion in the proximal segment. We performed post dilation with 3.5 x 8 mm NC balloon. At this time final angiogram was performed that showed excellent stent expansion, no residual stenosis and KARLEE-3 flow. Guidewire and guide catheter were removed. Patient left the Guard Supervisor in a stable condition.. * Proximal Left Anterior Descending to Mid Left Anterior Descendin% stenosis treated with a AB TREK 2.50X12 RX BALLOON, MDT R SHUBHAM 3.5X26 ASHWIN, and MDT NC EUPHORA RX [id number] BALLOON. 0% residual stenosis, KARLEE: 3 flow. * 1st Diagonal: 80% stenosis treated with a AB TREK 2.50X12 RX BALLOON. 0% residual stenosis, KARLEE: 3 flow. * First Obtuse Marginal Branch Segment: 80% stenosis treated with a AB TREK 2.50X12 RX BALLOON, and MDT R SHUBHAM 3.5X15 ASHWIN. 0% residual stenosis, KARLEE: 3 flow. Conclusions 1. Critical stenosis of proximal to 2. mid LAD 3. . Severe ostial diagonal artery stenosis. 4. Status post successful revascularization with ASHWIN x1 to proximal to mid LAD. 5. Balloon angioplasty of ostial diagonal artery performed. Severe large sized OM1 stenosis. Status post successful revascularization with ASHWIN x1.. 6. Proximal Left Anterior Descending to Mid Left Anterior Descending was treated with a Balloon, Drug Eluting Stent, and Balloon. 7. 1st Diagonal was treated with a Balloon. 8. First Obtuse Marginal Branch Segment was treated with a Balloon, and Drug Eluting Stent. Recommendations * We will load with Brilinta. Continue aspirin and Brilinta for at least 1 year. * Aggrastat drip for 4 hours. * High intensity statin therapy. * Outpatient cardiology follow-up in 4 weeks. Interventional RX Recommendation: PCI w/o planned CABG Diagnostic RX Recommendation: PCI w/o planned CABG Anticoagulation: Heparin Pressures Phase:Rest AO : 108 / 80 ( 95 ) @ 11:31:00 AM 97 / 73 ( 86 ) @ 11:34:00 AM 144 / 86 ( 113 ) @ 11:37:00 AM 95 / 67 ( 81 ) @ 11:47:00 AM 107 / 69 ( 84 ) @ 11:51:00 AM 105 / 71 ( 87 ) @ 11:58:00 AM 80 / 54 ( 67 ) @ 12:03:00 PM 115 / 78 ( 95 ) @ 12:11:00 PM 111 / 77 ( 94 ) @ 12:21:00 PM LV : 152 / 7 / 24 @ 11:37:00 AM 139 / 2 / 20 @ 11:37:00 AM Valves Phase:DefaultPhase AV : 0.0 @ 11:34:02 AM AV Mean Gradient: 0.0 @ 11:34:02 AM Clinical Evaluation EBL: 5mL-10mL Procedural Details Procedure Consent Obtained. Pre-Procedure Time Out. Identified patient by full name and date of as verbalized by the patient/guarantor. Does the consent match the physician's order: Yes. Accurate & Complete Informed Consent: Yes. Inpatient/Outpatient History & Physical on Chart: Yes. If H&P is completed, is and addenduem needed: No. Visualize and Verify Site with Patient/Guarantor: N/A. Relevant Radiology Images available: Yes. The risks, benefits, and alternatives of sedation and/or procedure were discussed by physician. The patient agrees to continue. Procedure started. [facility] Clinical Fraility Score: 3: Managing Well. Guard Supervisor Indications: ACS > 24 hours. Chest Pain Symptom Assessment: Atypical Angina. Correct patient, site and procedure confirmed by cath team. Current diagnosis: Chest Pain. PERRLA. Strong, equal hand rabble furnace tender bilaterally. Lungs clear x 5 lobes. IV Site on Arrival: 18 gauge in the right anticubital. IV Fluids: 0.9% NaCl at KVO. 0 mL infused prior to cathode builder. Pre Procedural Pulses: right radial was 3+. Oxygen started at 2liters/min via nasal canula. right groin was prepped with chloroprep then draped in the usual sterile fashion. right radial was prepped with chloroprep then draped in the usual sterile fashion. Baseline sample Acquired. HR: 0 BPM. Physician notified. Physician arrived. Current Diagnosis : Chest Pain. Physician scrubbed in. Immediate Pre-Procedure Time Out. Correct Patient: Yes; Correct Procedure: Yes; Correct Site: Yes; Correct Patient Position: Yes; Correct Supplies: Yes; Dried Flammable Prep: Yes; Blood Products Available: N/A;. Lidocaine 1% infiltrated to the right radial. Arterial access obtained. A 5 jamaican TIG catheter in over wire. Multiple views taken of left coronary artery. Catheter redirected to the RCA. Multiple views taken of right coronary artery. Physician review of cine films. EDP Sample taken: LV 152/7,24; HR: 79 BPM; SpO2: 97%. Pullback taken: LV 139/2,20; AO 144/86(113); Mean: 0mmHg, Peak to Peak: 0mmHg, SEP: 5sec/min; HR: 83 BPM; SpO2: 97%. Catheter removed over the exchange wire. Side port of sheath attached to Normal Saline flush at KVO to maintain patency. PCI Indication: CAD (without ischemic symptoms). 6 jamaican XB 3 guide catheter was inserted over the wire. Runthrough guidewire was advanced through the guide catheter to lesion in the OM. Inflation number : 1 A AB TREK 2.50X12 RX BALLOON was prepped and advanced across the 1st Ob Keli , then inflated to 12 VINAY for 0:18 seconds. Balloon out. Results checked. Inflation Number : 2 A MDT R SHUBHAM 3.5X15 ASHWIN -Lot Number# _[id number] EXP: 10/19/2024 was prepped and advanced across the 1st Ob Keli. The stent was deployed at 12 VINAY for 0:20 seconds. Stent balloon out over wire. Results checked. Wire out. Runthrough guidewire was advanced through the guide catheter to lesion in the prox LAD. Runthrough guidewire was advanced through the guide catheter to lesion in the diaganol. Inflation number: 1 The AB TREK 2.50X12 RX BALLOON was reinflated across the 1st Diag, to 8 VINAY for 0:15 seconds. Inflation number: 2 The AB TREK 2.50X12 RX BALLOON was reinflated across the 1st Diag, to 8 VINAY for 0:14 seconds. Balloon out. Results checked. Wire removed from the Diag. Inflation number: 1 The AB TREK 2.50X12 RX BALLOON was reinflated across the Prox LAD, to 12 VINAY for 0:17 seconds. Balloon out. IVUS catheter inserted OTW. ACT drawn. Results 349 seconds. Therapeutic limits - pre-heparin administration 90-150 seconds and monitoring heparin during a vascular procedure >250 seconds. IVUS results obtained. IVUS catheter out OTW. Inflation Number : 2 A MDT R SHUBHAM 3.5X26 ASHWIN -Lot Number# _[id number]_ EXP: 10/18/2024 was prepped and advanced across the Prox LAD. The stent was deployed at 12 VINAY for 0:32 seconds. Stent balloon out over wire. Results checked. IVUS catheter inserted OTW. IVUS results obtained. IVUS catheter out OTW. Inflation number : 3 A MDT NC EUPHORA RX [id number] BALLOON was prepped and advanced across the Prox LAD , then inflated to 14 VINAY for 0:18 seconds. Inflation number: 4 The MDT NC EUPHORA RX [id number] BALLOON was reinflated across the Prox LAD, to 12 VINAY for 0:15 seconds. Results checked. Wire out. Results checked. ACT drawn. Results 290 seconds. Therapeutic limits - pre-heparin administration 90-150 seconds and monitoring heparin during a vascular procedure >250 seconds. Guide catheter out. A TR Band was successful obtaining hemostatsis at the Right Radial artery insertion site. Post Procedure: Pulses reassessed and unchanged. PERRLA. Strong, equal hand rabble furnace tender bilaterally. No VTE prophylaxis required. Total IV fluids: 80 mL. Medication's Wasted: Lidocaine 1% = 2 mL. Medication's Wasted: Nitro = 49.8 mg. Vital chart was stopped. Post-op diagnosis: CAD. Complications: None. Estimated blood loss: 5mL-10mL. Responsiveness - Normal response to verbal stimuli; alert and oriented, PERRLA. Airway - Unaffected, no intervention required; spontaneous ventilation. Circulation: W/N/L, pulses unchanged. Nausea/Vomiting: No. Procedure completed. Patient transferred by wheelchair to CPRU. Access Site Site: Right Radial artery Sheath Size: 6 Fr Hemostasis Method: TR Band Hemostasis Success: Successful Procedure Medications Start: 10:22 AM Stop: 10:22 AM Medication: Versed Amount: 1 mg Route: I.V. Start: 10:22 AM Stop: 10:22 AM Medication: Fentanyl Amount: 50 mcg Route: I.V. Start: 10:24 AM Stop: 10:24 AM Medication: Benadryl Amount: 25 mg Route: I.V. Start: 10:28 AM Stop: 10:28 AM Medication: Versed 1 mg and Fentanyl 25 mcg Amount: 1 Route: I.V. Start: 10:28 AM Stop: 10:28 AM Medication: Nitrogylcerin Amount: 200 mcg Route: I.A. Start: 10:29 AM Stop: 10:29 AM Medication: Heparin Amount: 5000 units Route: I.V. Start: 10:46 AM Stop: :46 AM Medication: Heparin Amount: 5000 units Route: I.V. Start: 11: AM Stop: 11: AM Medication: Heparin Amount: 1000 units Route: I.V. Start: 11:12 AM Stop: 11:12 AM Medication: Aggrastat 12.5 mg/250 mL Amount: 41 ml Route: I.V. bolus Start: 11:12 AM Stop: 11:12 AM Medication: Aggrastat 12.5 mg/250 mL Amount: 14.8 ml/hr Route: I.V. drip Start: 11:21 AM Stop: 11:21 AM Medication: Fentanyl Amount: 25 mcg Route: I.V. Start: 11:24 AM Stop: 11:24 AM Medication: Brilinta Amount: 180 mg Route: P.O. I, the attending physician, have reviewed and verified all procedure medications. Yes, all medications given per verbal order History/Risk Factors Hypertension: No Dyslipidemia: Yes Peripheral Arterial Disease (PAD): No Myocardial Infarction (NE): No Obesity: No Renal Disease: No Prior Interventions PCI: No CABG: No Valve Surgery: No Report Signatures Finalized by Cory Zeng MD on 04/11/2022 12:27 PM
--- NOTE | 2022-04-11 09:58 | P.CONIM_ITS ---
Providers/Reason For Consult Consulting Physician/Specialty*: Cory Zeng MD/ Cardiology Reason for Consult*: Chest pain/ abnormal stress test Requesting Physician: Dr Lott Attending Physician: Macy Lott MD Primary Care Provider: Jessica Geller History of Present Illness History of Present Illness Trevor Bell is a 56 year old male with past medical history of diabetes, hyperlipidemia who presented to the hospital with substernal chest discomfort for last couple of weeks. According to patient it radiates to the back and the right arm. It has been worsening. EKG showed right bundle branch block but no ischemic changes. Troponins did not trend up. He underwent nuclear stress test today that showed a large area of ischemia in LAD territory. Not have prior cardiac history. Review of Systems General: Reports: 10 or more systems reviewed and unremarkable except in HPI and below Const: Denies: fever(s), chills, body aches, change in appetite or diaphoresis Card: Reports: chest pain; Denies: palpitations, edema, swelling of feet/ankles, dyspnea on exertion, or thopnea or leg pain with exertion Resp: Denies: dyspnea, productive cough, wheezing or pain on inspiration GI: Denies: abdominal pain, nausea, vomiting, diarrhea or constipation : Denies: flank pain or difficulty urinating Musc: Denies: back pain, extremity pain or extremity swelling Neuro: Denies: headache(s), difficulty walking or confusion Medications/Allergies Home Medications Medication Instructions Recorded Confirmed Last Taken Type dapagliflozin 10 mg tablet 10 mg PO DAILY 04/10/22 04/10/22 04/05/22 08:00 History (Located Within [facility]) lovastatin 40 mg tablet 40 mg PO BEDTIME 04/10/22 04/10/22 04/06/22 21:00 History metformin 500 mg tablet,extended 500 mg PO BID 04/10/22 04/10/22 04/05/22 08:00 History release 24 hr naproxen 500 mg tablet 500 mg PO BID 04/10/22 04/10/22 04/09/22 12:00 History Allergies Allergy/AdvReac Type Severity Reaction Status Date / Time No Known Allergies Allergy Verified 04/10/22 23:35 Current Medications Generic Name Dose Route Start Last Admin Trade Name Freq PRN Reason Stop Dose Admin Enoxaparin Sodium 40 mg 04/11/22 01:15 04/11/22 02:38 Enoxaparin 40 Mg/0.4 Ml Syringe SUBCUT 40 mg Q24H DREAD Administration Insulin Human Lispro 0 unit 04/11/22 08:00 04/11/22 09:56 Insulin Lispro 100 Unit/1 Ml SUBCUT Not Given TIDWM [facility] Protocol Nitroglycerin 1 inch 04/11/22 01:15 04/11/22 09:56 Nitroglycerin 1 Gm/Inch Oint Pkt TOPICAL Not Given Q6H DREAD PFSH Acute PFSH: Medical History Diabetes High cholesterol Social History Smoking and tobacco status: never smoked Substance/Drug Use: never Vitals/I&O/Wt Last Vital Signs Temp 98.0 F 04/11/22 04:00 Pulse 69 04/11/22 08:00 Resp 18 04/11/22 04:00 BP 115/69 04/11/22 07:53 Pulse Ox 98 04/11/22 08:00 O2 Del Method 04/11/22 08:00 Weight last 48 hrs Weight 180 lb Physical Exam Narrative: GENERAL: Patient is alert, awake and oriented x3. [] NECK: No jugular vein distension. [] HEENT: No cyanosis. No icterus. No pallor. [] HEART: Regular S1 and S2. No murmur, rub or gallop. [] LUNGS: Clear to auscultate bilaterally. [] CENTRAL NERVOUS SYSTEM: Grossly nonfocal. [] EXTREMITIES: Lower extremities with 1+ edema bilaterally. Pulses palpable in the lower extremities, both dorsalis pedis and posterior tibial. [] Data : 04/11/22 03:00 04/11/22 03:00 A&P Assessment and plan (1) Chest pain: (2) Dyslipidemia: (3) Diabetes: Plan Patient has presented with typical worsening chest pain symptoms. He underwent stress test this morning that shows large area of ischemia in LAD territory. Plan for coronary angiogram with possible percutaneous coronary intervention. Risks and benefits of the procedure have been discussed with the patient. He understands the risks and benefits and wants to proceed with the procedure. Prelim read on echocardiogram shows normal LV systolic function. Continue aspirin. Keep n.p.o. Thank you for involving us with care of this patient. We will continue to follow. Please call with questions. Consult Attestations Medical Necessity Statement: Care expected to cross 2 midnights. Coding Level of Care Code Acute Safety Clothing And Equipment Developer for Sarai Call Diagnoses Chest pain R07.9 Dyslipidemia E78.5 Diabetes E11.9
[2022-04-11] MEDS: aspirin 81 mg EC Tablet PO (10:08)
--- NOTE | 2022-04-11 10:22 | W.PM.OPSUD ---
Surgery/Procedure H&P Update DATE OF PROCEDURE: April 11, 2022 DATE H&P PERFORMED: 04/11/22 H&P UPDATE INFORMATION: I have reviewed H&P completed within last 30 days, I have examined patient prior to procedure and No changes to prior documentation PREOP DIAGNOSIS: Worsening angina/abnormal stress test PRIMARY INDICATION FOR PROCEDURE: Worsening angina/abnormal stress test PLANNED PROCEDURE: Left heart cath with possible percutaneous coronary intervention PATIENT REASSESSED PRIOR TO SEDATION, WITH NO CHANGE NOTED: Yes PHYSICAL EXAM: alert, oriented x 3, clear to auscultation bilaterally and regular rate & rhythm AIRWAY EVAL/ANESTHESIA PLAN: normal airway, ASA III, Local Anesthesia, Risks, benefits & alternatives of sedation and/or procedure discussed and Patient agrees to continue as planned
[2022-04-11] MEDS: sodium chloride 0.9% 1,000 ML 100 ML IV (11:30)
--- NOTE | 2022-04-11 11:42 | SUR.PHASEI ---
HOLDING NOTE Patient brought to CPRU post cath via the right radial approach. TR Band in place- no hematoma formation noted. Family brought to bedside. Call light within reach. Informed to call for needs. IV 0.9% NS AT 100 ML/HR POST CATH FOR 12 HOURS. IV AGGRASTAT AT 14.8 ML/HR TILL 1630 TODAY THEN PLAN TO D/C. Both infusing into Left forearm with no issues.
[2022-04-11 13:19] LABS: Glucose Point of Care 163 mg/dL (70-110)
--- NOTE | 2022-04-11 13:23 | SUR.PHASEI ---
TRANSFER Patient taken to [address] [place] [address] FOR EXTENDED RECOVERY BY WHEELCHAIR. FAMILY AT BEDSIDE. REPORT TO REJI RN.
[2022-04-11] MEDS: insulin lispro 100 unit/1 mL SUBCUT ×2 (13:30→18:42)
--- NOTE | 2022-04-11 13:54 | PC.CHAP ---
Pastoral Care Encounter/Spiritual Assessment Type of Contact [] Declined finisher wallboard and plasterboard visit [] Patient/Family/Request visit [] Outpatient visit [] Follow-up visit [] Physician referral [] Code/Alert [x] Routine visit [] Staff referral [] Actively dying [] Patient sleeping [] Family support [] [] Out of room [] Palliative care [] [] Receiving care in room [] Pre-surgical visit [] Trauma [] Long length of stay [] ICU visit [] Other: Relational/Emotional Strength [x] Patient feels connected with others/family/visitors/staff [] Distress [] Loneliness/isolation [] Abandonment Spirituality of Patient [x] Person of Love [] Attends Hinduism of their Love [x] Believes in Prayer [] Reads Bible or Evangelical materials [] There are Spiritual issues to be addressed Sign Shop Supervisor Interventions [x] Prayer [x] Active listening [] Non-anxious presence [] Spiritual/emotional support [] Crisis/trauma care [] Spiritual counseling [] Bereavement support [] Provided bereavement packet [] Provided Bible/devotional materials [] Provided toy/stuffed animal, coloring book to patient or family member [] Provided Communion [] Anointing/[place] [] Salvation [x] Completed spiritual assessment [] Other: Impact on Illness or Injury [] Angry [] Fearful [] Anxious [] Often cries [] Exhaustion [] Unable to work [] Unable to attend jain [] Unable to walk/stand [] Unable to read [] Unable to drive [] Unable to eat/drink [] Unable to sleep [] Unable to be with family [] Patient intubated [] Other: Summary Time spent with patient 10 min
--- NOTE | 2022-04-11 15:06 | PC.NURSE ---
Discontinued Aggrastat drip per banquet kitchen supervisor Dr. Zeng telephone order to stopped the drip now.
--- NOTE | 2022-04-11 15:17 | PC.NURSE ---
1300 received from cardiac cath lab manager via stretcher. pt is alert, orientedx4. denies any chest pain or discomfort. TR band intact in right wrist. no hematoma, bleeding or swelling. radial pulse is palpable+3. pt is instructed on activity restrictions on right arm and to let nurse know immediately for any unusual pain, burning sensation and bleeding. verbalizes understanding.
[2022-04-11 16:45] LABS: Glucose Point of Care 218 mg/dL (70-110)
--- NOTE | 2022-04-11 17:14 | PC.NURSE ---
TR band removed at 1708. No hematoma/ brusing noticed. 2 2x2s applied and covered with tegaderm. No oozing noticed.
[2022-04-11] MEDS: atorvastatin 40 mg Tablet 80 MG PO (20:32)
[2022-04-11] MEDS: ticagrelor 90 mg Tablet PO (20:32)
[2022-04-11 20:45] LABS: Glucose Point of Care 261 mg/dL (70-110)
[2022-04-12] VITALS: BP 141/95; PULSE 106; RESP 20; TEMP 36.8; O2SAT 96
[2022-04-12 04:00] VITALS: BP 113/75; PULSE 86; RESP 18; TEMP 36.9; O2SAT 96
[2022-04-12 04:48] LABS: Basophils % 0.7 %; Eosinophils # 0.2 10^3/uL (0.0-0.8); Eosinophils % 5.3 %; Hematocrit 42.7 % (42.0-52.0); Lymphocytes # 1.2 10^3/uL (0.8-4.8); Lymphocytes % 26.9 %; Mean Corpuscular HGB Conc 32.8 g/dL (30.0-36.0); Mean Corpuscular Volume 91.4 fl (80-94); Mean Platelet Volume 10.3 fL (7.4-10.4); Monocytes # 0.5 10^3/uL (0.2-0.9); Monocytes % 10.4 %; Neutrophils # 2.57 10^3/uL (1.8-7.7); Neutrophils % 56.5 %; Nucleated Red Blood Cells % 0 %; Platelet Count 144 10^3/cmm (130-400); Red Blood Count 4.67 10^6/uL (4.1-5.3); Red Cell Distribution Width 12.8 % (12.1-15.1); White Blood Count 4.5 10^3/uL (4.0-10.0)
[2022-04-12 05:11] LABS: Blood Urea Nitrogen 10 mg/dL (6-20); Calcium 9.1 mg/dL (8.5-10.5); Carbon Dioxide 26 mmol/L (22-29); Chloride 106 mmol/L (98-107); Creatinine Clr Calc Pharmacy 94.1472; Glomerular Filtration Rate 87.9 mL/min (90-130); Glucose 222 mg/dL (65-115); Osmolality Calculated 296 mOsm/kg (285-295); Sodium 140 mmol/L (136-145)
[2022-04-12 05:27] LABS: Anion Gap 12.3 (5-19); Potassium 4.3 mmol/L (3.5-5.1)
[2022-04-12 05:33] VITALS: PULSE 96
[2022-04-12 06:19] LABS: Glucose Point of Care 211 mg/dL (70-110)
[2022-04-12 07:25] VITALS: BP 139/89; PULSE 86; RESP 20; TEMP 36.8; O2SAT 94
--- NOTE | 2022-04-12 07:41 | PM.PN ---
Subjective Subjective: Patient is stable. Denies chest pain. Vitals/I&O/Wt Last Vital Signs Temp 98.3 F 04/12/22 07:25 Pulse 86 04/12/22 07:25 Resp 20 H 04/12/22 07:25 BP 139/89 04/12/22 07:25 Pulse Ox 94 04/12/22 07:25 O2 Del Method 04/12/22 07:25 04/11/22 04/12/22 04/12/22 22:59 06:59 14:59 Intake Total 1480 / 2080 120 / 2200 Balance 1480 / 2080 120 / 2200 Weight last 48 hrs Weight 180 lb Physical Exam Narrative: GENERAL: Patient is alert, awake and oriented x3. [] NECK: No jugular vein distension. [] HEENT: No cyanosis. No icterus. No pallor. [] HEART: Regular S1 and S2. No murmur, rub or gallop. [] LUNGS: Clear to auscultate bilaterally. [] CENTRAL NERVOUS SYSTEM: Grossly nonfocal. [] EXTREMITIES: Lower extremities with 1+ edema bilaterally. Pulses palpable in the lower extremities, both dorsalis pedis and posterior tibial. [] Data : 04/12/22 04:40 04/12/22 04:40 A&P Assessment and plan (1) Chest pain: (2) Dyslipidemia: (3) Diabetes: Plan Patient has presented with typical worsening chest pain symptoms. Stress test showed large area of ischemia in LAD territory. Coronary angiogram was performed that showed severe proximal to mid LAD stenosis that underwent successful revascularization with ASHWIN x1. OM1 was also treated with ASHWIN x1. Ostial diagonal artery was treated with balloon angioplasty Echocardiogram showed normal LV systolic function Continue aspirin and Brilinta for at least 1 year Continue metoprolol and lisinopril. High intensity statin therapy Thank you for involving us with care of this patient. Patient is stable to be discharged from cardiology standpoint. Please call with questions. Attestations Medical Necessity Statement*: Care expected to cross 2 midnights Coding Level of Care Code Acute School Child Care Attendant for Sarai Call Diagnoses Chest pain R07.9 Dyslipidemia E78.5 Diabetes E11.9
[2022-04-12 08:00] VITALS: PULSE 86; O2SAT 94
[2022-04-12] MEDS: aspirin 81 mg EC Tablet PO (08:50)
[2022-04-12] MEDS: ticagrelor 90 mg Tablet PO (08:50)
[2022-04-12] MEDS: metoprolol tartrate 25 mg Tablet 12.5 MG PO (08:51)
--- NOTE | 2022-04-12 09:57 | PM.DCS ---
Discharge Providers Date of Admission: 04/11/22 00:54 Date of Discharge: April 12, 2022 Attending Provider at Admission: Raman Ramirez MD Attending Provider at Discharge: Macy Lott MD Primary Care Provider: Jessica Geller Diagnoses at Discharge Discharge Diagnosis (1) Chest pain: Status: Acute (2) Dyslipidemia: Status: Acute (3) Diabetes: Status: Acute Reason for Visit Reason for Visit: chest tightness Hospital Course Hospital Course 56-year male who was admitted for management of chest pain, he had a positive stress test in outside reversible defect in LAD territory., cardiology was consulted, patient went for coronary angiogram same day he had 2 drug-eluting stent and balloon angioplasty, currently see coronary angiogram report Conclusions ? 1. Critical stenosis of proximal to ? 2. mid LAD ? 3. . Severe ostial diagonal artery stenosis. ? 4. Status post successful revascularization with ASHWIN x1 to proximal to mid LAD. ? 5. Balloon angioplasty of ostial diagonal artery performed. Severe large sized OM1 stenosis. Status post successful revascularization with ASHWIN x1.. ? 6. Proximal Left Anterior Descending to Mid Left Anterior Descending was treated with a Balloon, Drug Eluting Stent, and Balloon. ? 7. 1st Diagonal was treated with a Balloon. ? 8. First Obtuse Marginal Branch Segment was treated with a Balloon, and Drug Eluting Stent. Patient has triglycerides above 500 I did psychotherapist counselor him regarding use of appropriate diet and atorvastatin. He does not have any pancreatitis signs. He will get aspirin and Brilinta for 1 year along with statins. His hemoglobin A1c is 9 he only at the worst flare he would like to require insulin down the road for now I will give him higher dose of metformin along with Farxiga He can follow-up with his PCP for Premeal insulin adjustment for now I will give him Lantus 15 units Physical Exam Narrative: Patient is awake and alert Chest pain-free S1, S2 Hemodynamically stable EOMI, PERRLA, abdomen is soft Currently well on room air Discharge Data Studies Completed and Pending Completed Studies During Hospitalization Category Date Time Status BUSINESS OPERATIONS MANAGER request for service Routine Exams 04/11/22 09:56 Completed Cardiac Stress Test MIBI [Sestamibi Stress Test Request Exams 04/11/22 01:48 Draft ] Routine XR chest 1V portable [id number] Stat Exams 04/10/22 23:21 Completed NM kwasi perf SPECT r/s* [id number] Routine Nuc Med 04/11/22 01:48 Completed US echo complete [CV. echo complete* [id number]] Routine Ultrasound 04/11/22 01:09 Completed Pending at discharge Category Date Time Status Basic Metabolic Panel AM LABS Lab 04/13/22 04:00 Ordered Basic Metabolic Panel AM LABS Lab 04/14/22 04:00 Ordered Complete Blood Count w/Auto AM LABS Lab 04/13/22 04:00 Ordered Complete Blood Count w/Auto AM LABS Lab 04/14/22 04:00 Ordered Radiology Impressions Chest X-Ray 04/10/22 23:21 IMPRESSION: No acute radiographic findings in the chest. Laboratory Results WBC 4.5 10^3/uL (4.0-10.0) 04/12/22 04:40 RBC 4.67 10^6/uL (4.1-5.3) 04/12/22 04:40 Hgb 14.0 g/dL (11.7-16.6) 04/12/22 04:40 Hct 42.7 % (42.0-52.0) 04/12/22 04:40 MCV 91.4 fl (80-94) 04/12/22 04:40 MCH 30.0 pg (28.0-34.0) 04/12/22 04:40 MCHC 32.8 g/dL (30.0-36.0) 04/12/22 04:40 RDW 12.8 % (12.1-15.1) 04/12/22 04:40 Plt Count 144 10^3/cmm (130-400) 04/12/22 04:40 MPV 10.3 fL (7.4-10.4) 04/12/22 04:40 Neut % (Auto) 56.5 % 04/12/22 04:40 Lymph % (Auto) 26.9 % 04/12/22 04:40 [place] % (Auto) 10.4 % 04/12/22 04:40 Eos % (Auto) 5.3 % 04/12/22 04:40 Baso % (Auto) 0.7 % 04/12/22 04:40 Neut # (Auto) 2.57 10^3/uL (1.8-7.7) 04/12/22 04:40 Lymph # (Auto) 1.2 10^3/uL (0.8-4.8) 04/12/22 04:40 [place] # (Auto) 0.5 10^3/uL (0.2-0.9) 04/12/22 04:40 Eos # (Auto) 0.2 10^3/uL (0.0-0.8) 04/12/22 04:40 Baso # (Auto) 0.0 10^3/uL (0.0-0.1) 04/12/22 04:40 Nucleated RBC % (auto) 0 % 04/12/22 04:40 Nucleated RBCs # 0.0 /100WBC 04/12/22 04:40 Sodium 140 mmol/L (136-145) 04/12/22 04:40 Potassium 4.3 mmol/L (3.5-5.1) 04/12/22 04:40 Chloride 106 mmol/L (98-107) 04/12/22 04:40 Carbon Dioxide 26 mmol/L (22-29) 04/12/22 04:40 Anion Gap 12.3 (5-19) 04/12/22 04:40 BUN 10 mg/dL (6-20) 04/12/22 04:40 Creatinine 0.9 mg/dL (0.7-1.2) 04/12/22 04:40 GFR Calculation 87.9 mL/min (90-130) L 04/12/22 04:40 Glucose 222 mg/dL (65-115) H 04/12/22 04:40 POC Glucose 211 mg/dL (70-110) H 04/12/22 06:05 Estimat Average Glucose 212 04/11/22 03:00 Hemoglobin A1c 9.0 % (4.0-6.0) H 04/11/22 03:00 Calculated Osmolality 296 mOsm/kg (285-295) H 04/12/22 04:40 Calcium 9.1 mg/dL (8.5-10.5) 04/12/22 04:40 Total Bilirubin 0.5 mg/dL (0.15-1.2) 04/10/22 23:37 AST 5 U/L (0-40) 04/10/22 23:37 ALT 5 U/L (0-41) 04/10/22 23:37 Alkaline Phosphatase 140 U/L (40-130) H 04/10/22 23:37 Troponin T Baseline 24 ng/L (0-15) H 04/10/22 23:37 Troponin T 120 Minute 28.96 ng/L (0-15) H 04/11/22 02:07 Delta Troponin T 4.96 ABS# (0-10) 04/11/22 02:07 Troponin T Hi Sens 6Hr 25.88 ng/L (0-15) H 04/11/22 05:15 Troponin T Hi Sens 6Hr Delta 1.88 ng/L (0-12) 04/11/22 05:15 Total Protein 6.8 g/dL (6.6-8.7) 04/10/22 23:37 Albumin 4.3 g/dL (3.5-5.2) 04/10/22 23:37 Globulin 2.5 g/dL (1.3-4.6) 04/10/22 23:37 Triglycerides 732 mg/dL (0-150) H 04/11/22 05:15 Cholesterol 257 mg/dL (0-200) H 04/11/22 05:15 LDL Cholesterol Direct 137 mg/dL (0-100) H 04/11/22 05:15 LDL Cholesterol, Calc Not Reportable 04/11/22 05:15 HDL Cholesterol 32 mg/dL (60-100) L 04/11/22 05:15 LDL/HDL Ratio Not Reportable 04/11/22 05:15 Cholesterol/HDL Ratio 8.03 mg/dL (1.0-5.00) H 04/11/22 05:15 Lipase 53 U/L (13-60) 04/11/22 05:15 Vitals Last Vital Signs Temp 98.3 F 04/12/22 07:25 Pulse 86 04/12/22 08:00 Resp 20 H 04/12/22 07:25 BP 139/89 04/12/22 07:25 Pulse Ox 94 04/12/22 08:00 O2 Del Method 04/12/22 08:00 Discharge Plan Discharge Patient Disposition: Home Condition: Stable Prescriptions: New (DME) lancets [Lancets, Super Thin] Misc See Rx Instructions .Route Qty: 200 2RF Rx Instructions: As directed (DME) Accu-Chek [place] Plus test strp Strip See Rx Instructions .Route Qty: 100 0RF Rx Instructions: As directed aspirin 81 mg Tablet,Delayed Release (Dr/Ec) 81 mg PO DAILY Qty: 90 3RF atorvastatin 40 mg Tablet 80 mg PO BEDTIME Qty: 90 3RF insulin glargine [Lantus U-100 Insulin] 100 unit/mL solution 15 unit SUBCUT QPM Qty: 10 3RF metoprolol succinate [Toprol XL] 25 mg tablet extended release 24 hr 12.5 mg PO DAILY Qty: 60 0RF Brilinta 90 mg Tablet 90 mg PO Q12H Qty: 270 4RF Continued metformin 500 mg tablet extended release 24 hr 500 mg PO BID Qty: 60 0RF Farxiga 10 mg tablet 10 mg PO DAILY Qty: 30 0RF Discontinued lovastatin 40 mg tablet 40 mg PO BEDTIME naproxen 500 mg tablet 500 mg PO BID Discharge Orders: Discharge Order (Routine); Ordered 04/12/22 Ordered By: Macy Lott Referrals: Jessica Geller FNP [Primary Care Provider] - 4-7 days Cory Zeng M.D [Physician] - 1 month Discharge Diet: Cardiac Discharge Activity: Increase activity as tolerated Patient Instructions: Heart Healthy Diet (DC), Cardiac Rehabilitation (DC), Coronary Intravascular Stent Placement (DC), Post Angiogram Home Care Instructions Discharge Attestations Time Spent in Discharge Care*: less than 30 min Quality Metrics Clinical Quality Measures [ No reported AMI, CVA or VTE this stay] Coding Level of Care Code Acute Chg FW DC note Diagnoses Chest pain R07.9 Dyslipidemia E78.5 Diabetes E11.9
[2022-04-12 11:05] VITALS: PULSE 86; O2SAT 94
--- NOTE | 2022-04-12 11:05 | PC.NURSE ---
Discharge Note Patient discharged to home via private vehicle accompanied by spouse. Discharge instructions reviewed with patient and/or office machines sales representative. Mobile pharmacy medications and/or prescriptions provided. Belongings/home medications returned.
== END 2022-04-12 11:05 | disposition home or self-care (01) ==
LOC: ER 04-11 00:57 → MEDSURG 04-11 01:19
PROVIDERS: Internal Medicine; Admitting Provider Internal Medicine; Emergency Provider Emergency Medicine; PCP Nurse Practitioner Family; Visit Provider Internal Medicine
DX: I25.10 Atherosclerotic heart disease of native coronary artery without angina pectoris (principal); E78.5 Hyperlipidemia, unspecified; E11.9 Type 2 diabetes mellitus without complications; E78.00 Pure hypercholesterolemia, unspecified; Z79.84 Long term (current) use of oral hypoglycemic drugs
CPT/HCPCS: 36415; 36416; 71045; 78452; 80048; 80053; 80061; 82962; 83036; 83690; 83721; 84484; 85025; 85347; 92978; 93005; 93017; 93306; 93458; 94760; 96360; 96361; 96372; 99152; 99153; 99285; A9500; C1725; C1753; C1769; C1874; C1887; C1894; C9600; C9601; G0378; J1200; J1644; J1650; J1815; J2250; J2785; J3010; J3490; J7030; Q9967

== ENCOUNTER → 2022-04-20 12:25 | Outpatient (BNVA) | payer SELFPAY | PROVIDERS: PCP Nurse Practitioner Family; Visit Provider Nurse Practitioner Family | DX: I25.10 Atherosclerotic heart disease of native coronary artery without angina pectoris (principal); E11.9 Type 2 diabetes mellitus without complications | CPT/HCPCS: 80048; 83036 ==

== ENCOUNTER → 2022-07-24 10:51 | Outpatient (BNVA) | payer MEDICAID, SELFPAY | PROVIDERS: PCP Nurse Practitioner Family; Visit Provider Nurse Practitioner Family | DX: E78.5 Hyperlipidemia, unspecified (principal); E11.9 Type 2 diabetes mellitus without complications; I10 Essential (primary) hypertension; Z95.5 Presence of coronary angioplasty implant and graft; M54.50 Low back pain, unspecified; G89.29 Other chronic pain | CPT/HCPCS: 80053; 80061; 83036; 85025 ==

== ENCOUNTER 2022-08-02 13:03 | Outpatient (CLI) | payer MEDICAID, SELFPAY ==
--- NOTE | 2022-08-02 13:12 | XR_ITS ---
WS: [id number] XR ribs LT 2V* [id number] REASON FOR EXAM: R07.81 - Pleurodynia FINDINGS: No fracture or other focal abnormality of the left ribs. Underlying pleura and lung are unremarkable except for extensive calcified granulomatous disease. No soft tissue abnormality the chest wall is identified. XR/XR ribs LT 2V* [id number] IMPRESSION: No significant abnormality.
--- NOTE | 2022-08-02 13:12 | XR_ITS ---
WS: [id number] XR chest 2V* [id number] REASON FOR EXAM: R07.81 - Pleurodynia FINDINGS: The chest is unchanged compared to 04/10/2022. The heart and mediastinum are within normal limits. Calcified granulomatous disease in both hemithoraces with multiple submillimeter calcified nodules th roughout both lungs. No acute pulmonary parenchymal or pleural abnormality. XR/XR chest 2V* [id number] IMPRESSION: Stable chest with no acute abnormality.
== END 2022-08-02 13:04 | disposition home or self-care (01) ==
LOC: RAD 13:06
PROVIDERS: PCP Nurse Practitioner Family; Visit Provider Nurse Practitioner Family
DX: R07.81 Pleurodynia (principal); R07.89 Other chest pain
CPT/HCPCS: 71046; 71100

== ENCOUNTER 2022-08-11 09:07 | Outpatient (CLI) | payer MEDICAID, SELFPAY ==
--- NOTE | 2022-08-11 09:16 | XR_ITS ---
WS: [id number] Exam: XR thoracic spine 2V [id number] Date/Time of Exam: 08/11/2022 9:17 AM Reason For Exam: THORACIC BACK PAIN No fracture or dislocation. Mild spondylosis. Slight levoscoliosis. Normal paraspinal soft tissue str uctures. Incidentally noted are numerous calcified granulomas throughout both lungs. XR/XR thoracic spine 2V [id number] IMPRESSION: 1. Mild degenerative changes. No fracture or malalignment. 2. Mild levoscoliosis.
--- NOTE | 2022-08-11 09:16 | XR_ITS ---
WS: [email or web address] Exam: XR lumbar spine 6V w f/e [id number] Date/Time of Exam: 08/11/2022 9:17 AM Reason For Exam: BACK PAIN, LUMBAR No fracture or dislocation. No flexion or extension instability. Disc spaces are relatively well main tained. Mild spondylosis. Slight levoscoliosis. XR/XR lumbar spine 6V w f/e [id number] IMPRESSION: 1. Minimal degenerative change and slight levoscoliosis. 2. No fracture or malalignment. No flexion or extension instability.
== END 2022-08-11 09:08 | disposition home or self-care (01) ==
LOC: RAD 09:10
PROVIDERS: PCP Nurse Practitioner Family; Visit Provider Nurse Practitioner Family
DX: M41.84 Other forms of scoliosis, thoracic region; M41.86 Other forms of scoliosis, lumbar region
CPT/HCPCS: 72070; 72114

== ENCOUNTER 2022-09-11 09:48 | Outpatient (CLI) | payer MEDICAID, SELFPAY ==
--- NOTE | 2022-09-11 10:15 | MR_ITS ---
WS: [id number] MRI LUMBAR SPINE NONCONTRAST TECHNIQUE: Sagittal T1, T2 and STIR imaging. Axial T1 and T2 imaging. CLINICAL INFORMATION: M54.9 - Dorsalgia, unspecified COMPARISON: MRI 2016 FINDINGS: Mild lumbar curve. No acute compression. No high-grade central canal stenosis. Alignment is similar i n appearance to 2016. L1-L2: No significant disc bulging. Spinal canal and foramen are patent. Mild facet arthropathy. L2-L3: No significant disc bulging. Mild facet arthropathy. Spinal canal and foramen are patent. L3-L4: No significant disc bulging. Mild facet arthropathy. Tiny RIGHT foraminal protrusion with mild RIGHT foraminal narrowing. LEFT foramen is patent. L4-L5: Mild annular bulging with slight effacement of the ventral thecal sac. Moderate facet arthropa thy. Mild LEFT and no significant RIGHT foraminal narrowing. L5-S1: Mild disc osteophytic ridging. Moderate facet arthropathy. Mild LEFT greater than RIGHT forami nal narrowing. Spinal canal is patent. Degenerative arthritis sacroiliac joints. Shallow central protrusions cervical spine at C5-C6 and C6-C7 and thoracic spine T7-T8 included on th e lpn rn hospice imaging. Prominent urine distended bladder. Prominent prostate for patient this age measuring 3.6 x 3.8 cm. Re commend correlation PSA. MR/MR lumbar spine wo con* [id number] IMPRESSION: 1. Mild lumbar curve. No acute compression. No high-grade central canal stenos is. 2. Tiny RIGHT foraminal protrusion L3-L4 with mild RIGHT foraminal narrowing. 3. Mild LEFT greater than RIGHT L5-S1 bony foraminal narrowing similar to 2016 . 4. Moderate facet arthropathy L3-L5. 5. Shallow central protrusion cervical spine at C5-C6 and C6-C7 and thoracic s pine T7-T8. 6. Prominent urine distended bladder may be due to bladder outlet obstruction. Prominent prostate for patient this age measuring 3.6 x 3.8 cm. Recommend tyra elation PSA.
== END 2022-09-11 09:49 | disposition home or self-care (01) ==
PROVIDERS: PCP Nurse Practitioner Family; Visit Provider Nurse Practitioner Family
DX: M54.50 Low back pain, unspecified (principal); M51.26 Other intervertebral disc displacement, lumbar region
CPT/HCPCS: 72148

== ENCOUNTER → 2022-09-19 09:03 | Outpatient (BNVA) | payer MEDICAID, SELFPAY | PROVIDERS: PCP Nurse Practitioner Family; Visit Provider Nurse Practitioner Family | DX: Z12.5 Encounter for screening for malignant neoplasm of prostate (principal); M47.818 Spondylosis without myelopathy or radiculopathy, sacral and sacrococcygeal region; M47.816 Spondylosis without myelopathy or radiculopathy, lumbar region; M48.061 Spinal stenosis, lumbar region without neurogenic claudication; N40.0 Benign prostatic hyperplasia without lower urinary tract symptoms | CPT/HCPCS: G0103 ==

== ENCOUNTER 2022-10-14 06:00 | Outpatient (RCR) | payer MEDICAID, SELFPAY | END 2022-11-12 23:59 | disposition home or self-care (01) | LOC: APT 06:00 | PROVIDERS: PCP Nurse Practitioner Family; Visit Provider Anesthesiology Pain Medicine | DX: G89.29 Other chronic pain (principal); M54.50 Low back pain, unspecified; M47.816 Spondylosis without myelopathy or radiculopathy, lumbar region; M51.36 Other intervertebral disc degeneration, lumbar region | CPT/HCPCS: 97110; 97161 ==

== ENCOUNTER 2022-10-25 09:09 | Outpatient (CLI) | payer MEDICAID, SELFPAY ==
--- NOTE | 2022-10-25 09:30 | MR_ITS ---
WS: [id number] MRI RIGHT KNEE HISTORY: right knee pain COMPARISON: None available. Anterior cruciate ligament: Intact. Posterior cruciate ligament: Intact. Medial collateral ligament: Edema surrounding the MCL but no tear. Posterior lateral corner structures: Intact. Medial menisci: Significant blunting and abnormal signal involving the posterior horn. The most signi ficant abnormal signal is towards the meniscal root and involving the superior articular surface. Ant erior horn small caliber. No definite tear. Lateral meniscus: Intact. Normal signal, size and shape. Extensor mechanism: Distal quadriceps tendon and patellar tendons are intact. Fluid and soft tissue: Very small suprapatellar joint effusion. There is a small amount of fluid exte nding posterior to the femoral condyles. No Lind's cyst. Osseous and articular structures: Patellofemoral compartment: Mild narrowing of patellofemoral joint space. Surface chondromalacia of t he patellar eminence. No full-thickness cartilage defect and no marrow edema. Medial compartment: Moderate narrowing medial compartment. Significant loss of cartilage. Most signif icant chondromalacia is involving the weightbearing surface of femoral condyle. Loss of cartilage wit h marrow edema and cortical irregularity. This is also the site of the meniscal injury of the posteri or horn. Marrow edema in the anterior most femoral condyle and tibial plateau. Lateral compartment: Mild narrowing of the lateral compartment. Mild thinning and fissuring of the ca rtilage. Well-circumscribed 14 mm osteochondral defect in the posterior medial tibial plateau. Very closely as sociated with the posterior horn medial meniscus. No loose body at this time. MR/MR knee RT wo con* [id number] IMPRESSION: 1. No ACL tear. 2. Osteochondral defect in the posterior medial tibial plateau. 3. Abnormal posterior horn medial meniscus towards the meniscal root. Signific ant fraying and probable tear towards the meniscal root. 4. 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 5. Small joint effusion. 6. Mild MCL sprain. 7. Mild chondromalacia patellar eminence.
== END 2022-10-25 09:10 | disposition home or self-care (01) ==
LOC: RAD 09:10
PROVIDERS: PCP Nurse Practitioner Family; Visit Provider Physician Assistant
DX: M25.561 Pain in right knee (principal); S83.411A Sprain of medial collateral ligament of right knee, initial encounter; M25.461 Effusion, right knee; M22.41 Chondromalacia patellae, right knee; X58.XXXA Exposure to other specified factors, initial encounter
CPT/HCPCS: 73721

== ENCOUNTER 2022-10-28 19:50 | Emergency (ER) | payer MEDICAID, SELFPAY ==
[2022-10-28 20:24] VITALS: BMI 27.9
[2022-10-28 20:26] VITALS: BP 129/78; PULSE 90; RESP 16; TEMP 36.6; O2SAT 98
--- NOTE | 2022-10-28 21:42 | USR_ITS ---
PROCEDURE INFORMATION: Exam: US Duplex Left Lower Extremity Veins, Limited Exam date and time: 10/28/2022 9:51 PM Age: 57 years old Clinical indication: Pain; Leg, lower; Left; Additional info: Pain and swelling of leg TECHNIQUE: Imaging protocol: Real-time duplex ultrasound of the left extremity with 2-D contreras scale, color Doppler flow and spectral waveform analysis including responses to compression and other maneuvers (when performed) with image documentation. Limited exam focused on the left lower extremity veins. COMPARISON: No relevant prior studies available. FINDINGS: Left deep veins: Unremarkable. The common femoral, femoral, proximal profunda femoral and popliteal veins are patent without thrombus. Normal Doppler waveforms. Normal compressibility and/or augmentation response. Left superficial veins: Unremarkable. Saphenofemoral junction is patent without thrombus. Soft tissues: At the left lower leal there is a small fluid collection measuring 16 x 5 x 21 mm. A small hematomas likely. US/[place] [id number] IMPRESSION: 1. No evidence of deep vein thrombosis. 2. At the left lower leal there is a small fluid collection measuring 2 cm. A small hematomas likely.
--- NOTE | 2022-10-28 21:42 | XRR_ITS ---
PROCEDURE INFORMATION: Exam: XR Left Tibia and Fibula Exam date and time: 10/28/2022 10:12 PM Age: 57 years old Clinical indication: Injury or trauma; Other: Rock hit left lower leg; Blunt trauma; Patient HX: Left marker is level with area of interest; Additional info: Injury with pain to mid leal TECHNIQUE: Imaging protocol: Radiologic exam of the left tibia and fibula. Views: 2 views. COMPARISON: [place] [id number] 10/28/2022 9:51 PM FINDINGS: Bones/joints: No acute fracture or dislocation is noted. The skeletal structures seem age-appropriate. Soft tissues: Unremarkable. XR/XR tibia fibula LT 2V [id number] IMPRESSION: No acute findings.
--- NOTE | 2022-10-28 21:50 | W.ED.EXTPRO ---
HPI - Extremity Problem General: Chief complaint: Extremity Injury, Lower Stated complaint: left leg injury Time Seen by Provider: 10/28/22 21:31 History of Present Illness: Patient is a 57-year-old male comes to the ED with injury to left lower leg. Approximately 5 days ago patient threw a large rock and it bounced off an object and went back and hit the medial aspect of his left lower leg. Patient is on blood thinner. He says immediately afterwards he had large swelling and hematoma present. He went and saw his primary care doctor couple days ago and they told him he had a hematoma. He is still having pain in the area along with some swelling and mild bruising present. Patient says the swelling has went down. Denies any pain below injury site. He has some worsening pain with weightbearing. Associated symptoms: Deny chest pain, fever(s) or rash Review of Systems Const: Denies: fever(s), chills or fatigue Eyes: Denies: change in vision or eye discomfort ENMT: Denies: throat pain, odynophagia, nasal discharge or nasal congestion Card: Denies: chest pain, palpitations, edema, swelling of feet/ankles, dyspnea on exertion or orthopnea Resp: Denies: dyspnea, productive cough or non-productive cough GI: Denies: abdominal pain, nausea, vomiting, diarrhea, constipation or hematochezia : Denies: flank pain, difficulty urinating, dysuria or hematuria Musc: Reports: extremity pain (Left lower leg pain and swelling.); Denies: neck pain, back pain or extremity swelling Skin/Breast: Denies: rash or new lesions Neuro: Denies: headache(s), numbness in extremities or weakness in extremities PFS ED PFSH: Medical History (Updated 10/29/22 @ 02:03 by TINO Parkinson) Atherosclerosis of coronary artery Chest pain Diabetes Dyslipidemia High cholesterol No pertinent family history Social History Smoking and tobacco status: never smoked Second hand smoke exposure: No Alcohol intake: never Physical Exam Const: COMMON NORMALS: no acute distress, patient oriented x3 and alert HENMT: COMMON NORMALS: normocephalic HEAD & SCALP: normocephalic MOUTH: Normal oral and palatal mucosa present THROAT: posterior oropharynx normal and uvula midline Neck/C-Spine: COMMON NORMALS: supple GENERAL: Yes normal visual inspection Resp: COMMON NORMALS: normal respiratory effort, No retractions, No use of accessory muscles and clear to auscultation bilaterally AUSCULTATION: clear to auscultation bilaterally Cardio: COMMON NORMALS: regular rate, regular rhythm, S1 normal heart sound present, S2 normal heart sound present, No gallops present (Cardio), No clicks present (Cardio), No murmurs present (Cardio) and Peripheral pulses 2+ throughout RATE: regular rate RHYTHM: regular rhythm HEART SOUNDS: S1 normal heart sound present and S2 normal heart sound present PERIPHERAL PULSES: Peripheral pulses 2+ throughout GI: COMMON NORMALS: Normal to inspection, nondistended, normoactive bowel sounds present, Soft to palpation, non-tender and no masses PALPATION: Yes Soft to palpation : COMMON NORMALS: Yes no CVA tenderness BLADDER/KIDNEY EXAM: Yes no CVA tenderness Back/Pelvis: COMMON NORMALS: no CVA tenderness Extremity: NARRATIVE EXTREMITY EXAM: Left lower leg?medial aspect of mid leal?localized tenderness, ecchymosis and mild swelling. Findings suggestive of hematoma. No signs of a compartment syndrome and patient has no tenderness below injury site on left foot. No concerns for cellulitis. Neuro: COMMON NORMALS: patient oriented x3 SENSORIUM/ORIENTATION: Yes alert GAIT: Yes Normal gait present Skin: GENERAL SKIN EXAM: dry skin Course Vital Signs: Vital signs: Vital Signs Temperature 98 F 10/28/22 22:41 Pulse Rate 68 10/28/22 22:41 Respiratory Rate 16 10/28/22 22:41 Blood Pressure 119/78 10/28/22 22:41 Pulse Oximetry 98 10/28/22 22:41 Oxygen Delivery Me thod Room Air 10/28/22 20:26 MDM - Extremity (Nontraumatic) Medical Decision Making Patient is a 57-year-old male comes to the ED with injury to left lower leg. Approximately 5 days ago patient threw a large rock and it bounced off an object and went back and hit the medial aspect of his left lower leg. Patient is on blood thinner. He says immediately afterwards he had large swelling and hematoma present. He went and saw his primary care doctor couple days ago and they told him he had a hematoma. He is still having pain in the area along with some swelling and mild bruising present. Patient says the swelling has went down. Denies any pain below injury site. He has some worsening pain with weightbearing. Vitals are stable. Left lower leg?medial aspect of mid leal?localized tenderness, ecchymosis and mild swelling. Findings suggestive of hematoma. No signs of a compartment syndrome and patient has no tenderness below injury site on left foot. No concerns for cellulitis. X-ray of tib-fib showed no acute fractures or findings. Ultrasound venous duplex of left lower extremity showed no DVTs but did note a small hematoma. Patient was stable for discharge home and diagnosed with hematoma of left lower extremity. Follow-up with PCP in the next week for reevaluation. Return to ED precautions given. Patient understood and agreed with plan Lab Data Radiology Impressions Tibia/Fibula X-Ray 10/28/22 21:42 IMPRESSION: No acute findings. Venous Duplex 10/28/22 21:42 IMPRESSION: 1. No evidence of deep vein thrombosis. 2. At the left lower leal there is a small fluid collection measuring 2 cm. A small hematomas likely. Discharge Plan Discharge Patient Disposition: Home Clinical Impression: Hematoma of left lower leg Condition: Stable Prescriptions: No Action Toprol XL 25 mg tablet extended release 24 hr 12.5 mg PO DAILY 90 Days Qty: 45 1RF atorvastatin 40 mg tablet 80 mg PO BEDTIME Qty: 90 1RF losartan 25 mg tablet 25 mg PO DAILY Qty: 90 3RF nitroglycerin 0.4 mg tablet, sublingual 0.4 mg sublingual Q5M PRN (Reason: chest pain) Qty: 30 1RF Rx Instructions: do not exceed 3 doses per episode omeprazole 20 mg tablet,delayed release (DR/EC) 20 mg PO DAILY PRN Farxiga 10 mg tablet 10 mg PO DAILY Qty: 90 1RF metformin 500 mg tablet extended release 24 hr 500 mg PO BID Qty: 90 1RF aspirin 81 mg Tablet,Delayed Release (Dr/Ec) 81 mg PO DAILY Qty: 90 3RF Brilinta 90 mg Tablet 90 mg PO Q12H Qty: 270 4RF (DME) Lancets, Super Thin Misc See Rx Instructions .Route Qty: 200 2RF Rx Instructions: As directed (DME) Accu-Chek Galina Plus test strp Strip See Rx Instructions .Route Qty: 100 0RF Rx Instructions: As directed Discharge Orders: Discharge ED (Routine); Ordered 10/28/22 Ordered By: Ej Whittaker Referrals: Jessica Geller FNP [Primary Care Provider] - Discharge Diet: Regular Discharge Activity: Increase activity as tolerated Patient Instructions: Hematoma (ED) Activity Restrictions/Additional Instructions: Follow-up with medical provider as directed in the next 3 to 5 days for reevaluation. Continue taking all medications as previously prescribed. Rest, ice and elevate left foot. You can apply Eliud wrap around hematoma as well to help with swelling. Return to the ER or your medical provider if condition worsens. Please read and understand discharge instructions. Thank you for choosing [facility] for your healthcare needs today. Please realize this is an emergency room and that we are providing you with a medical screening exam and this may not be complete and all inclusive of all the testing and or work up that you may need to determine your ailment or severity of your illness. It is very important that you follow up as instructed or that you return to the Emergency Department should you have concerns or if your condition changes or worsens in any way. Coding Level of Care Code ED Drive Worker for Sarai Call
[2022-10-28 22:41] VITALS: BP 119/78; PULSE 68; RESP 16; TEMP 36.6; O2SAT 98
== END 2022-10-28 22:42 | disposition home or self-care (01) ==
PROVIDERS: Emergency Provider Physician Assistant; PCP Nurse Practitioner Family
DX: S80.12XA Contusion of left lower leg, initial encounter (principal); Z79.84 Long term (current) use of oral hypoglycemic drugs; Z79.82 Long term (current) use of aspirin; I25.10 Atherosclerotic heart disease of native coronary artery without angina pectoris; E11.9 Type 2 diabetes mellitus without complications; E78.5 Hyperlipidemia, unspecified; W20.8XXA Other cause of strike by thrown, projected or falling object, initial encounter
CPT/HCPCS: 73590; 93971; 99284

== ENCOUNTER 2022-11-13 06:00 | Outpatient (RCR) | payer MEDICAID, SELFPAY | END 2022-12-13 23:59 | disposition home or self-care (01) | LOC: APT 06:00 | PROVIDERS: PCP Nurse Practitioner Family; Visit Provider Anesthesiology Pain Medicine | DX: M54.50 Low back pain, unspecified (principal); G89.29 Other chronic pain | CPT/HCPCS: 97110; 97530 ==

== ENCOUNTER 2022-11-14 09:04 | Outpatient (CLI) | payer MEDICAID, SELFPAY ==
--- NOTE | 2022-11-14 09:10 | CT_ITS ---
WS: [id number] CT ABDOMEN AND PELVIS WITH CONTRAST HISTORY: HEMATURIA TECHNIQUE: Imaging performed of the abdomen and pelvis with IV contrast. Single phase imaging of the abdomen. Coronal and sagittal reformats are submitted. All CT scans at [facility] use at [address] one of these dose optimization techniques: automated exposure control; mA and/or kV adjustment per patient size (includes targeted exams where dose is matched to clinical indication); or iterative re construction. IV CONTRAST: Omnipaque 350; 100 mL IV. Oral contrast: No DLP: 355.57 mGy.cm COMPARISON: None available. Lower thorax: Numerous bilateral subcentimeter pulmonary nodules. Some of these nodules are calcified while others are noncalcified. Nodules range in size from 2 mm to 6 mm. Heart is normal size. Small hiatal hernia. Liver/biliary system: Normal size with no intrahepatic dilatation. Gallbladder: Normal. No gallstones or wall thickening. No pericholecystic fluid. Pancreas: Normal size pancreas and pancreatic duct. No adjacent inflammation. Spleen: Normal size spleen. No mass or infarct. Adrenal glands: Normal. Right kidney: Normal. Left kidney: Mid cortical 6 mm cyst. No obstruction. Aorta: Normal. Lymphadenopathy: None. Free fluid: None. GI tract: Normal stomach. No small bowel obstruction. Mild diffuse constipation. Normal appendix. Num erous scattered diverticula in the descending and sigmoid colon. Abdominal wall: Fat containing umbilical hernia. Pelvis: No free fluid or adenopathy within the pelvis. Mild prostate gland enlargement. Bones: Unremarkable. CT/CT abdomen pelvis w con* [id number] IMPRESSION: 1. No acute abdominal or pelvic abnormalities. 2. No renal obstruction or solid mass identified. 3. Very mild prostate gland enlargement. 4. Normal appendix. 5. Mild scattered diverticular disease in the distal colon. 6. Numerous, subcentimeter, calcified and noncalcified pulmonary nodules at th e lung bases. Probably postinflammatory and may be post granulomatous disease. Early metastatic lesions are not excluded. Recommend chest CT follow-up with IV contrast at this time. Serial surveillance imaging may be necessary to exclude malignancy. Further recommendations after evaluation of the entire lungs based upon the size of the lesions.
[2022-11-14] MEDS: iohexol 350 mg/mL 500 mL Btl (per mL) IV (09:32)
== END 2022-11-14 09:05 | disposition home or self-care (01) ==
PROVIDERS: PCP Nurse Practitioner Family; Visit Provider Nurse Practitioner Family
DX: R31.9 Hematuria, unspecified (principal); N40.0 Benign prostatic hyperplasia without lower urinary tract symptoms; K57.30 Diverticulosis of large intestine without perforation or abscess without bleeding
CPT/HCPCS: 74177; Q9967

== ENCOUNTER → 2022-11-28 09:13 | Outpatient (BNVA) | payer MEDICAID, SELFPAY | PROVIDERS: PCP Nurse Practitioner Family; Visit Provider Physician Assistant | DX: M23.91 Unspecified internal derangement of right knee (principal) | CPT/HCPCS: 99213 ==

== ENCOUNTER 2022-12-06 13:04 | Outpatient (CLI) | payer MEDICAID, SELFPAY ==
--- NOTE | 2022-12-06 13:13 | CTR_ITS ---
PROCEDURE INFORMATION: Exam: CT Chest With Contrast; Diagnostic Exam date and time: 12/06/2022 1:47 PM Age: 57 years old Clinical indication: Abnormal findings; Abnormal radiologic exam of lung or chest; Prior surgery; Surgery date: 6+ months; Surgery type: Heart stents; Additional info: Abnormal findings on diagnostic imaging of lung TECHNIQUE: Imaging protocol: Diagnostic computed tomography of the chest with contrast. Radiation optimization: All CT scans at this facility use at least one of these dose optimization techniques: automated exposure control; mA and/or kV adjustment per patient size (includes targeted exams where dose is matched to clinical indication); or iterative reconstruction. Contrast material: OMNI 350; Contrast volume: 95 ml; Contrast route: INTRAVENOUS (IV); REPORTING DATA: Count of CT and Cardiac NM exams in prior 12 months: This patient has received 2 known CTs and 0 known cardiac nuclear medicine studies in the 12 months prior to the current study. COMPARISON: CR XR chest 2V* [id number] 08/02/2022 1:13 PM RADIATION DOSE METRICS: Total DLP (mGy-cm): 274.39 FINDINGS: Lungs: Unremarkable. No consolidation. No masses. Pleural spaces: Unremarkable. No pneumothorax. No pleural effusion. Heart: Unremarkable. No cardiomegaly. No pericardial effusion. Coronary arteries: Coronary artery atherosclerotic calcifications. Lymph nodes: Prominent right hilar 15 mm nodule with several additional subcentimeter short axis mediastinal lymph nodes. Vasculature: Unremarkable. No aortic aneurysm. Liver: Hepatic steatosis. Stomach and bowel: Constipation. Bones/joints: Unremarkable. No acute fracture. Soft tissues: Unremarkable. Other findings: Multiple calcified benign granulomas. CT/CT chest w con* [id number] IMPRESSION: 1. Prominent right hilar 15 mm nodule with several additional subcentimeter short axis mediastinal lymph nodes. 2. Coronary artery atherosclerotic calcifications. 3. Multiple calcified benign granulomas. 4. Hepatic steatosis. 5. Constipation.
[2022-12-06] MEDS: iohexol 350 mg/mL 500 mL Btl (per mL) IV (13:55)
== END 2022-12-06 13:05 | disposition home or self-care (01) ==
LOC: RAD 13:08
PROVIDERS: PCP Nurse Practitioner Family; Visit Provider Nurse Practitioner Family
DX: R91.8 Other nonspecific abnormal finding of lung field (principal)
CPT/HCPCS: 71260; Q9967

== ENCOUNTER → 2022-12-21 10:40 | Outpatient (BNVA) | payer MEDICAID, SELFPAY | PROVIDERS: PCP Nurse Practitioner Family; Visit Provider Anesthesiology Pain Medicine | DX: M51.36 Other intervertebral disc degeneration, lumbar region (principal); M47.816 Spondylosis without myelopathy or radiculopathy, lumbar region; M23.91 Unspecified internal derangement of right knee | CPT/HCPCS: 99214 ==

== ENCOUNTER → 2022-12-22 08:54 | Outpatient (BNVA) | payer MEDICAID, SELFPAY | PROVIDERS: PCP Nurse Practitioner Family; Visit Provider Internal Medicine | DX: I25.10 Atherosclerotic heart disease of native coronary artery without angina pectoris (principal); E11.9 Type 2 diabetes mellitus without complications; E78.5 Hyperlipidemia, unspecified; Z79.84 Long term (current) use of oral hypoglycemic drugs | CPT/HCPCS: 99214 ==

== ENCOUNTER → 2022-12-26 09:08 | Outpatient (BNVA) | payer MEDICAID, SELFPAY | PROVIDERS: PCP Nurse Practitioner Family; Referring Provider Physician Assistant; Visit Provider Orthopaedic Surgery | DX: M17.11 Unilateral primary osteoarthritis, right knee (principal) | CPT/HCPCS: 99203 ==

== ENCOUNTER → 2023-01-23 13:42 | Outpatient (BNVA) | payer MEDICAID, SELFPAY | PROVIDERS: PCP Nurse Practitioner Family; Visit Provider Internal Medicine Pulmonary Disease | DX: R91.8 Other nonspecific abnormal finding of lung field (principal); R59.0 Localized enlarged lymph nodes | CPT/HCPCS: 99204 ==

== ENCOUNTER → 2023-02-09 08:39 | Outpatient (BNVA) | payer MEDICAID, SELFPAY | PROVIDERS: PCP Nurse Practitioner Family; Visit Provider Nurse Practitioner Family | DX: E11.9 Type 2 diabetes mellitus without complications (principal); I10 Essential (primary) hypertension | CPT/HCPCS: 80061; 83036; 85025 ==

== ENCOUNTER → 2023-11-28 08:31 | Outpatient (BNVA) | payer MEDICAID, SELFPAY | PROVIDERS: PCP Nurse Practitioner Family; Visit Provider Nurse Practitioner Family | DX: L30.4 Erythema intertrigo (principal); B35.3 Tinea pedis; L57.8 Other skin changes due to chronic exposure to nonionizing radiation; L57.0 Actinic keratosis; B35.1 Tinea unguium; D22.5 Melanocytic nevi of trunk; D23.71 Other benign neoplasm of skin of right lower limb, including hip; L91.8 Other hypertrophic disorders of the skin | CPT/HCPCS: 17000; 99204 ==

== ENCOUNTER 2024-03-05 08:25 | Outpatient (CLI) | payer MEDICAID, SELFPAY ==
--- NOTE | 2024-03-05 | ECG_ITS ---
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 Interpretive Statements LEXISCAN Procedure: At the baseline, the blood pressure was 119/84 mmHg with a heart rate of 73 bpm. The electrocardiogram showed normal sinus rhythm,right bundle branch block with normal ST and T's. The Lexiscan was infused over a period of 20 seconds. A total of 0.4 mg of Lexiscan was infused. The stress phase was continued for a total of 5 minutes. Heart rate was at the end of stress phase was 100 bpm and a blood pressure of 122/84 mmHg. The EKG at the peak infusion revealed normal sinus rhythm with no significant ST-T wave changes. Sestamibi was injected 20 seconds after the Lexiscan infusion. PVCs were noted Blood pressure at the end of recovery phase was 140/77 mmHg with a heart rate of 93 bpm. Conclusion: 1. Normal EKG response to Lexiscan infusion 2. No Lexiscan induced chest pain or cardiac arrhythmia. 3. Normal blood pressure and heart rate response. 4. Sestamibi/sestamibi perfusion scan pending; see separate report. Electronically Signed On 03-08-2024 9:39:16 CDT by Cory Zeng M.D. [email or web address]
[2024-03-05 09:02] VITALS: BMI 28.2
--- NOTE | 2024-03-05 09:06 | NMCV_ITS ---
NM kwasi perf SPECT r/s* [id number] Trevor Bell Age: 58 Gender: M : 1965 Exam Date: 03/05/2024 09:06 Ordering Phys: Cory Zeng M.D ([email or web address]) Technologist: JULIETTE Toledo Exam Location: [facility] Indications: CP, SOB STRESS TEST Please [facility] IMAGE PROTOCOL Rest/Stress 1 Lexiscan Day Radiopharmaceutical Dose (mCi) Administration Site Administered by Rest: Tc-99m 10.5 IV JULIETTE Toledo Sestamibi Stress:Tc-99m 32.7 IV JULIETTE [place] Sestamibi Rest: 05-Mar-2024 60 Discovery 630 Stress: 05-Mar-2024 30 Discovery 630 0.4mg Lexiscan. Images obtained in supine and prone position. SPECT RESULTS Technical Quality: Good Raw Data Analysis: Subdiaphragmatic activity Image Corrections: No attenuation or motion correction applied Summed Stress Score: 0 Summed Rest Score: 0 Summed Difference Score: 0 PERFUSION FINDINGS SPECT images demonstrate homogeneous tracer distribution throughout the myocardium. FUNCTIONAL RESULTS (calculated via Gated SPECT) Stress Image LV EF (%): 74 Stress EDV (mL):65 TID: 1.03 Stress ESV (mL):17 FUNCTIONAL FINDINGS: There is normal left ventricular systolic function. IMPRESSIONS 1. Normal myocardial perfusion imaging with no evidence of ischemia 2. LV systolic function is normal Cory Zeng MD (Electronically Signed) Final Date: 06 March 2024 18:44 S
[2024-03-05] MEDS: regadenoson 0.4 Mg/5 ml Syringe IVP (11:00)
[2024-03-05 11:11] VITALS: BP 122/79; PULSE 72
== END 2024-03-05 08:26 | disposition home or self-care (01) ==
PROVIDERS: PCP Nurse Practitioner Family; Visit Provider Internal Medicine
DX: R07.9 Chest pain, unspecified (principal); R06.02 Shortness of breath
CPT/HCPCS: 36415; 78452; 93017; 96374; A9500; J2785

== ENCOUNTER → 2025-06-03 10:34 | Outpatient (BNVA) | payer MEDICARE, SELFPAY | PROVIDERS: PCP Nurse Practitioner Family; Visit Provider Nurse Practitioner Family | DX: I25.10 Atherosclerotic heart disease of native coronary artery without angina pectoris (principal); I95.1 Orthostatic hypotension; R00.0 Tachycardia, unspecified; R60.0 Localized edema | CPT/HCPCS: 99214 ==

== ENCOUNTER → 2025-06-30 10:10 | Outpatient (BNVA) | payer MEDICARE, MEDICAID, SELFPAY | PROVIDERS: PCP Nurse Practitioner Family; Visit Provider Nurse Practitioner Family | DX: I25.10 Atherosclerotic heart disease of native coronary artery without angina pectoris (principal); I95.9 Hypotension, unspecified; I49.8 Other specified cardiac arrhythmias; I45.10 Unspecified right bundle-branch block; R00.0 Tachycardia, unspecified; R94.31 Abnormal electrocardiogram [ECG] [EKG] | CPT/HCPCS: 93005; 99214 ==